=== PATIENT | female | born 1945 | race Caucasian/White ===

== ENCOUNTER 2017-01-09 10:37 | Emergency (ER) | payer MEDICARE ==
[~2017-01-09 10:37] MED LIST: ASPI81TA2 PO; CARI350T PO; CARI350T14 PO; CEPH-264 PO; HYDR-2672 PO; HYDR-971 PO; LISI40TA PO; SIMV20TA3 PO; TRAZ300T2 PO; ZOLP10TA PO
--- NOTE | 2017-01-09 11:04 | ED.ADGEN ---
Past History Past Medical History: COPD, High Cholesterol, Hypertension Past Surgical History: Appendectomy, Cholecystectomy, Hysterectomy, Other Smoking: Cigarettes Alcohol Use: None Drug Use: None Adult General HPI HPI Patient is a 71-year-old female presents emergency department complaining of lower abdominal pain and cramping. This is been going on for last 3 days. His been treated since she had a bowel movement. The patient does take daily narcotic medications. She denies any fever, chills, nausea, vomiting. Denies any dysuria or vaginal bleeding or discharge. Review of Systems Review of Systems Constitutional: Denies fever or chills [] Eyes: Denies change in visual acuity, redness, or eye pain [] HENT: Denies nasal congestion or sore throat [] Respiratory: Denies cough or shortness of breath [] Cardiovascular: No additional information not addressed in HPI [] GI: Denies abdominal pain, nausea, vomiting, bloody stools or diarrhea [] : Denies dysuria or hematuria [] Musculoskeletal: Denies back pain or joint pain [] Integument: Denies rash or skin lesions [] Neurologic: Denies headache, focal weakness or sensory changes [] Endocrine: Denies polyuria or polydipsia [] Current Medications Current Medications Current Medications Medications (Trade) Dose Ordered Sig/Sue Start Time Stop Time Status Last Admin Dose Admin Methylnaltrexone [place] (Relistor) 12 mg 1X ONCE 01/09/17 12:30 01/09/17 12:31 Allergies Allergies Allergies Coded Allergies Type Severity Reaction Last Updated Verified paroxetine HCl Allergy Unknown Diarrhea 02/16/16 Yes Physical Exam Physical Exam Constitutional: Well developed, well nourished, no acute distress, non-toxic appearance. [] HENT: Normocephalic, atraumatic, bilateral external ears normal, oropharynx moist, no oral exudates, nose normal. [] Eyes: PERRLA, EOMI, conjunctiva normal, no discharge. [] Neck: Normal range of motion, no tenderness, supple, no stridor. [] Cardiovascular:Heart rate regular rhythm, no murmur [] Lungs & Thorax: Bilateral breath sounds clear to auscultation [] Abdomen: Bowel sounds normal, soft, mild diffuse tenderness to palpation without peritoneal signs, no masses, no pulsatile masses. [] Skin: Warm, dry, no erythema, no rash. [] Back: No tenderness, no CVA tenderness. [] Extremities: No tenderness, no cyanosis, no clubbing, ROM intact, no edema. [] Neurologic: Alert and oriented X 3, normal motor function, normal sensory function, no focal deficits noted. [] Psychologic: Affect normal, judgement normal, mood normal. [] Current Patient Data Vital Signs Vital Signs Date Time Temp Pulse Resp B/P Pulse Ox O2 Delivery O2 Flow Rate FiO2 01/09/17 12:05 88 18 163/80 98 Nasal Cannula 2 01/09/17 10:40 98.2 Lab Results Laboratory Tests Test 01/09/17 11:03 01/09/17 11:07 01/09/17 11:44 Aspartate Amino Transferase (AST) 12U/L (15-37) L Alanine Aminotransferase (ALT) 12U/L (14-59) L Alkaline Phosphatase 66U/L (46-116) Lipase 36U/L (73-393) L POC Hemoglobin 16.3gm/dL POC Hematocrit 48% POC Sodium 139mmol/L (135-145) POC Potassium 4.1mmol/L (3.5-5.0) POC Chloride 98mmol/L (98-110) POC Total CO2 30mmol/L (23-32) Anion Gap 16mmol/L (6-14) H POC Blood Urea Nitrogen 14mg/dL (8-26) POC Creatinine 0.6mg/dL (0.5-1.4) Glucose Level 80mg/dL (60-99) POC Ionized Calcium (Brittani) 1.15mmol/L (1.13-1.32) Urine Collection Type Unknown Urine Color Sarah Urine Clarity Hazy Urine pH 6.0 Urine Specific [place] 1.020 Urine Protein 100 mg/dl (NEG-TRACE) Urine Glucose (UA) Negmg/dL (NEG) Urine Ketones (Stick) 40mg/dL (NEG) Urine Blood Trace (NEG) Urine Nitrite Neg (NEG) Urine Bilirubin Mod (NEG) Urine Urobilinogen Dipstick 1mg/dL (0.2 mg/dL) Urine Leukocyte Esterase Neg (NEG) Urine RBC 0/HPF (0-2) Urine WBC 1-4/HPF (0-4) Urine Squamous Epithelial Cells Many/LPF Urine Amorphous Sediment Present/HPF Urine Bacteria 0/HPF (0-FEW) Urine Mucus Marked/LPF EKG EKG [] Radiology/Procedures Radiology/Procedures KUB History: Diffuse abdominal pain for 3 days. Findings: No obstructive bowel pattern is seen. No significant dilatation of large or small bowel loops is seen. Vascular calcifications are seen. Small radiopaque punctate stone of the upper pole of the left kidney is seen. Cholecystectomy clips are seen within the right upper quadrant. The osseous structures are intact. IMPRESSION: No acute radiographic abnormality. DICTATED AND SIGNED BY: ARMOND KIMBALL MD DATE: 01/09/17 1138 CC: ROSA MARIA AMBROSE MD; YANIRA GUTIERREZ MD ~ [] Course & Med Decision Making Course & Med Decision Making Pertinent Labs and Imaging studies reviewed. (See chart for details) Workup consistent with constipation which goes along with her history of chronic opiate use. She was given a dose of Relistor store here in emergency department. She was discharged home with supportive care and follow-up instructions. [] Final Impression Final Impression constipation[] Problems: Dragon Disclaimer Dragon Disclaimer This electronic medical record was generated, in whole or in part, using a voice recognition dictation system. ROSA MARIA AMBROSE MD Jan 09, 2017 11:04
[2017-01-09 11:10] LABS: HEMOGLOBIN ISTAT 16.3 gm/dL; POTASSIUM ISTAT 4.1 mmol/L (3.5-5.0)
[2017-01-09 11:25] LABS: ALK PHOS 66 U/L (46-116); ALT (SGPT) 12 U/L (14-59); AST (SGOT) 12 U/L (15-37); LIPASE 36 U/L (73-393)
--- NOTE | 2017-01-09 11:38 | RAD ---
KUB History: Diffuse abdominal pain for 3 days. Findings: No obstructive bowel pattern is seen. No significant dilatation of large or small bowel loops is seen. Vascular calcifications are seen. Small radiopaque punctate stone of the upper pole of the left kidney is seen. Cholecystectomy clips are seen within the right upper quadrant. The osseous structures are intact. IMPRESSION: No acute radiographic abnormality.
[2017-01-09 12:02] LABS: BILIRUBIN,URINE MOD (NEG); CLARITY,URINE HAZY; COLOR,URINE AMBER; GLUCOSE,URINE NEG (NEG)
[2017-01-09 12:03] LABS: AMORPHOUS SEDIMENT,UR PRESENT /HPF; BACTERIA,URINE 0 /HPF (0-FEW); NITRITE,URINE NEG (NEG); RBC,URINE 0 /HPF (0-2); SQUAMOUS EPITHELIAL CELL,UR MANY /LPF; UROBILINOGEN,URINE 1 mg/dL (0.2 mg/dL)
[2017-01-09 12:05] VITALS: BP 163/80
[2017-01-09] MEDS ORDERED: METHYLNALTREXONE 12 MG/0.6 ML VIAL. SQ ONE (12:30)
== END 2017-01-09 12:45 | disposition home or self-care (01) ==
LOC: ER 10:37
DX: K59.00 Constipation, unspecified (principal); E78.00 Pure hypercholesterolemia, unspecified; I10 Essential (primary) hypertension; J44.9 Chronic obstructive pulmonary disease, unspecified; Z79.891 Long term (current) use of opiate analgesic; Z88.8 Allergy status to other drugs, medicaments and biological substances; F17.210 Nicotine dependence, cigarettes, uncomplicated; Z90.49 Acquired absence of other specified parts of digestive tract; Z90.710 Acquired absence of both cervix and uterus
CPT/HCPCS: 36415; 74000; 80047; 81001; 83690; 84075; 84450; 84460; 96372; 99285; J2212

== ENCOUNTER 2017-12-09 19:57 | Emergency (ER) | payer OTHER ==
[~2017-12-09 19:57] MED LIST changes: +ASPI-630 PO; -ASPI81TA2 PO; -HYDR-2672 PO; +HYDR-2766 PO
[2017-12-09 20:56] VITALS: BP 120/59
[2017-12-09] MEDS ORDERED: IV NORMAL SALINE 500ML 500 ML IV ONE (21:00)
--- NOTE | 2017-12-09 21:01 | PHYS DOC ---
Past History Past Medical History: COPD, Depression, High Cholesterol, Hypertension Past Surgical History: Appendectomy, Cholecystectomy, Hysterectomy, Other Smoking: Cigarettes Alcohol Use: None Drug Use: None Adult General Chief Complaint Chief Complaint: HEADACHE HPI HPI Patient is a 71 year old, one pack a day smoker presents with complaints of migraine that started today, similar to previous migraines. Patient has no other complaints except for chronic cough Review of Systems Review of Systems Constitutional: Denies fever or chills [] Eyes: Denies change in visual acuity, redness, or eye pain [] HENT: Denies nasal congestion or sore throat [] Respiratory: Yes to cough Cardiovascular: No chest pain GI: Denies abdominal pain, nausea, vomiting : Denies dysuria or hematuria [] Musculoskeletal: Denies back pain or joint pain [] Integument: Denies rash or skin lesions [] Neurologic: Denies headache, focal weakness or sensory changes [] All other systems were reviewed and found to be within normal limits, except as documented in this note. Allergies Allergies Allergies Coded Allergies Type Severity Reaction Last Updated Verified paroxetine HCl Allergy Unknown Diarrhea 02/16/16 Yes Physical Exam Physical Exam Constitutional: Well developed, well nourished, no acute distress, non-toxic appearance. [] HENT: Normocephalic, atraumatic, bilateral external ears normal, oropharynx dry , no oral exudates, nose normal. [] Eyes: PERRLA, EOMI, conjunctiva normal, no discharge. [] Neck: Normal range of motion, no tenderness, supple, no stridor. No LAD, no meningeal signs Cardiovascular:Heart rate regular rhythm, no murmur, equal pulses, normal perfusion Lungs & Thorax: Bilateral breath sounds clear to auscultation, no tachypnea, no wheezing, no rhonchi, no rales Abdomen: Bowel sounds normal, soft, no tenderness, Skin: Warm, dry, no erythema, no rash. [] Back: No tenderness, no CVA tenderness. [] Extremities: No tenderness, no DVT, ROM intact, no edema. [] Neurologic: Alert and oriented X 3, normal motor function, no focal deficits noted. Ambulates in the ED with normal gait and without assistance, cranial nerves III-12 within normal limits, no pronator drift Psychologic: Affect normal, judgement normal, mood normal. [] EKG EKG [] Radiology/Procedures Radiology/Procedures [] Course & Med Decision Making Course & Med Decision Making Pertinent Labs and Imaging studies reviewed. (See chart for details) 2129 patient states she feels greatly improved after medications and she is requesting discharge home [] Dragon Disclaimer Dragon Disclaimer This electronic medical record was generated, in whole or in part, using a voice recognition dictation system. Departure Departure: Impression: Primary Impression: Migraine Additional Impressions: Dehydration Tobacco abuse Tobacco abuse counseling Disposition: HOME, SELF-CARE Condition: IMPROVED Referrals: YANIRA GUTIERREZ MD (PCP) Please follow with your doctor in 1 day, please discuss with your doctor possible need for referral to neurologist Patient Instructions: Dehydration, Adult, Migraine Headache, Smoking Cessation Problem Qualifiers Apurva MORALES MD Dec 09, 2017 21:00
[2017-12-09] MEDS ORDERED: diphenhydrAMINE 50 MG/ML VIAL IVP ONE (21:15)
[2017-12-09] MEDS ORDERED: KETOROLAC 15 MG/ML VIAL. IV ONE (21:15)
[2017-12-09] MEDS ORDERED: PROCHLORPERAZINE 10 MG/2 ML VIAL. IV ONE (21:15)
== END 2017-12-09 21:43 | disposition home or self-care (01) ==
LOC: ER 19:57
DX: G43.909 Migraine, unspecified, not intractable, without status migrainosus (principal); E86.0 Dehydration; E78.00 Pure hypercholesterolemia, unspecified; F32.9 Major depressive disorder, single episode, unspecified; I10 Essential (primary) hypertension; J44.9 Chronic obstructive pulmonary disease, unspecified; F17.210 Nicotine dependence, cigarettes, uncomplicated; Z71.6 Tobacco abuse counseling; Z88.8 Allergy status to other drugs, medicaments and biological substances
CPT/HCPCS: 96361; 96374; 96375; 99284; J0780; J1200; J1885; J7040

== ENCOUNTER 2018-03-01 17:57 | Emergency (ER) | payer OTHER ==
[~2018-03-01] VITALS: Ht 167.6 cm; Wt 67.1 kg
[2018-03-01] MEDS ORDERED: diphenhydrAMINE 50 MG/ML VIAL IVP ONE ×2 (18:15→19:00)
[2018-03-01] MEDS ORDERED: IV NORMAL SALINE 1,000ML 1,000 ML IV ONE (18:15)
[2018-03-01] MEDS ORDERED: KETOROLAC 15 MG/ML VIAL. IV ONE (18:30)
[2018-03-01] MEDS ORDERED: PROCHLORPERAZINE 10 MG/2 ML VIAL. IV ONE (18:30)
[2018-03-01 18:57] VITALS: BP 145/65
--- NOTE | 2018-03-01 19:40 | ED.ADGEN ---
Past History Past Medical History: COPD, Depression, High Cholesterol, Hypertension Past Surgical History: Appendectomy, Cholecystectomy, Hysterectomy, Other Smoking: Cigarettes Alcohol Use: None Drug Use: None Adult General HPI HPI Patient is a 72 year old female who presents with common migraine. Patient states she has an extensive prior history of migraine headaches. This one has been present for the last 2 days. She states it feels identical to her normal migraines. She has not had a fever or chills. The headache did not come on quickly. She has no neck stiffness. She has no rashes. She denies vision changes although she does have photophobia and phonophobia. She has some nausea but no emesis. This headache feels exactly like her normal migraine syndrome. No focal neurologic deficits Review of Systems Review of Systems Constitutional: Denies fever or chills Eyes: Denies change in visual acuity, redness, or eye pain HENT: denies complaints Respiratory: Denies cough or shortness of breath Cardiovascular: No additional information not addressed in HPI GI: Denies abdominal pain, nausea, vomiting : Denies dysuria or hematuria Musculoskeletal: Denies back pain Integument: Denies rash or skin lesions Neurologic: Denies, focal weakness or sensory changes Endocrine: Denies polyuria or polydipsia All other systems were reviewed and found to be within normal limits, except as documented in this note. Current Medications Current Medications Current Medications Medications (Trade) Dose Ordered Sig/Sue Start Time Stop Time Status Last Admin Dose Admin Diphenhydramine HCl (Benadryl) 25 mg 1X ONCE 03/01/18 19:00 03/01/18 19:01 DC 03/01/18 18:50 25 MG Ketorolac Tromethamine (Toradol) 15 mg 1X ONCE 03/01/18 18:30 03/01/18 18:31 DC 03/01/18 18:30 15 MG Prochlorperazine Edisylate (Compazine) 10 mg 1X ONCE 03/01/18 18:30 03/01/18 18:31 DC 03/01/18 18:30 10 MG Sodium Chloride 1,000 ml @ 1,000 mls/hr 1X ONCE 03/01/18 18:15 03/01/18 19:14 DC 03/01/18 18:15 1,000 MLS/HR Allergies Allergies Allergies Coded Allergies Type Severity Reaction Last Updated Verified paroxetine HCl Allergy Unknown Diarrhea 5/16/16 Yes Physical Exam Physical Exam Constitutional: Well developed, well nourished, no acute distress, non-toxic appearance. HENT: Normocephalic, atraumatic, bilateral external ears normal, oropharynx moist Eyes: PERRLA, EOMI, conjunctiva normal, no discharge. Neck: Normal range of motion, no tenderness, supple, no stridor. Cardiovascular:Heart rate regular rhythm, no murmur Lungs & Thorax: Bilateral breath sounds clear to auscultation Skin: Warm, dry, no erythema, no rash. Back: No tenderness, no CVA tenderness. Extremities: Normal ROM Neurologic: Alert and oriented X 3, normal motor function, normal sensory function, no focal deficits noted Psychologic: Affect normal, judgement normal, mood normal. Current Patient Data Vital Signs Vital Signs Date Time Temp Pulse Resp B/P (MAP) Pulse Ox O2 Delivery O2 Flow Rate FiO2 03/01/18 18:57 86 18 145/65 (91) 97 Room Air 03/01/18 18:05 98.4 EKG EKG [] Radiology/Procedures Radiology/Procedures [] Course & Med Decision Making Course & Med Decision Making Pertinent Labs and Imaging studies reviewed. (See chart for details) Patient is evaluated in the emergency department. She has what is described to be a very typical migraine for her. No additional red flag symptoms or findings on physical exam are. She was given a dose of Compazine, Toradol, Benadryl, and 1 L of IV fluids. Her headache was improved but she did develop some akathisia' s which were very mild. She was given an additional dose of Benadryl and the symptoms improved almost immediately. At that point, the patient was 100% symptom free. She was requesting discharge to home. She was awake and alert and oriented with a normal steady gait and with no apparent side effects of the medications which were given Final Impression Final Impression Migraine Dragon Disclaimer Dragon Disclaimer This electronic medical record was generated, in whole or in part, using a voice recognition dictation system. SHRADDHA BARNARD DO March 01, 2018 19:40
== END 2018-03-01 19:02 | disposition home or self-care (01) ==
LOC: ER 17:57
DX: G43.909 Migraine, unspecified, not intractable, without status migrainosus (principal); J44.9 Chronic obstructive pulmonary disease, unspecified; E78.00 Pure hypercholesterolemia, unspecified; I10 Essential (primary) hypertension; F17.210 Nicotine dependence, cigarettes, uncomplicated; Z88.8 Allergy status to other drugs, medicaments and biological substances
CPT/HCPCS: 96374; 96375; 99284; J0780; J1200; J1885; 96361; J7030

== ENCOUNTER 2018-10-27 15:12 | Observation (INO) | payer OTHER ==
[~2018-10-27] VITALS: Ht 167.6 cm; Wt 2.4 kg
[~2018-10-27 15:12] MED LIST changes: -HYDR-2766 PO; +HYDR-2769 PO; +HYDR-3165 PO; -HYDR-971 PO
[2018-10-27 15:55] LABS: BASO % 1 % (0-3); EOS % 1 % (0-3); HEMATOCRIT 46.8 % (36.0-47.0); HEMOGLOBIN 15.2 g/dL (12.0-15.5); LYMPH # 1.5 x10^3/uL (1.0-4.8); LYMPH % 33 % (24-48); MEAN CORPUSCULAR HEMOGLOBIN 31 pg (25-35); MEAN CORPUSCULAR HGB CONC 32 g/dL (31-37); MEAN CORPUSCULAR VOLUME 96 fL (79-100); MONO # 0.4 x10^3/uL (0.0-1.1); MONO % 8 % (0-9); NEUT # 2.7 x10^3uL (1.8-7.7); NEUT % 57 % (31-73); PLATELET COUNT 202 x10^3/uL (140-400); RED BLOOD COUNT 4.89 x10^6/uL (3.50-5.40); RED CELL DISTRIBUTION WIDTH 16.5 % (11.5-14.5); WHITE BLOOD COUNT 4.7 x10^3/uL (4.0-11.0)
[2018-10-27] MEDS ORDERED: HYDROcodone/APAP 5/325MG 1 TAB TABLET ONE (15:56)
[2018-10-27] MEDS ORDERED: LIDOCAINE 1% Multi-Dose 20 ML VIAL. ONE (15:56)
[2018-10-27] MEDS ORDERED: LIDOCAINE 1% Multi-Dose 20 ML VIAL. IJ ONE (16:00)
[2018-10-27] MEDS ORDERED: HYDROcodone/APAP 5/325MG 1 TAB TABLET PO ONE (16:00)
[2018-10-27 16:07] LABS: ALBUMIN 3.4 g/dL (3.4-5.0); ALBUMIN/GLOBULIN RATIO 1.1 (1.0-1.7); CALCIUM 9.3 mg/dL (8.5-10.1); CREATININE 0.8 mg/dL (0.6-1.0); GFR 70.9; POTASSIUM 3.9 mmol/L (3.5-5.1); TOTAL BILIRUBIN 0.4 mg/dL (0.2-1.0); TOTAL PROTEIN 6.6 g/dL (6.4-8.2)
--- NOTE | 2018-10-27 16:13 | PHYS DOC ---
Past History Past Medical History: COPD, Depression, High Cholesterol, Hypertension Past Surgical History: Appendectomy, Cholecystectomy, Hysterectomy, Other Smoking: Cigarettes Alcohol Use: None Drug Use: None Adult General Chief Complaint Chief Complaint: MECHANICAL FALL HPI HPI Patient is a 72-year-old female who presents with complaint of head and neck pain after falling at home. Patient reportedly had fallen and hit the back of her head on the door stop. Patient is not sure whether or not she lost consciousness and does not actually remember the fall. She does complain of head and neck pain that she rates at an 8 out of 10. She states the pain in her neck is worsened with movement of her neck. She denies any nausea or vomiting. Patient is not sure why she fell. Review of Systems Review of Systems Constitutional: Denies fever or chills [] Eyes: Denies change in visual acuity, redness, or eye pain [] Respiratory: Denies cough or shortness of breath [] Cardiovascular: No additional information not addressed in HPI [] GI: Denies nausea or vomiting [] Musculoskeletal: Complains of neck pain [] Integument: Positive laceration to scalp [] Neurologic: Complains of headache without focal weakness or sensory changes [] All other systems were reviewed and found to be within normal limits, except as documented in this note. Current Medications Current Medications Current Medications Medications (Trade) Dose Ordered Sig/Sue Start Time Stop Time Status Last Admin Dose Admin Acetaminophen/ Hydrocodone Bitart (Lortab 5/325) 1 tab STK-MED ONCE 10/27/18 15:56 10/27/18 15:58 DC Lidocaine HCl 20 ml STK-MED ONCE 10/27/18 15:56 10/27/18 15:58 DC Allergies Allergies Allergies Coded Allergies Type Severity Reaction Last Updated Verified paroxetine HCl Allergy Unknown Diarrhea 02/16/16 Yes Physical Exam Physical Exam Constitutional: Well developed, well nourished, no acute distress, non-toxic appearance. [] HENT: Normocephalic, with 2 cm laceration to the parieto-occipital region of scalp that is curved in shape and extends into subcutaneous tissue. No galeal involvement is noted on exam. Margins are sharp. Bilateral external ears normal , oropharynx moist, no oral exudates, nose normal. [] Eyes: PERRLA, EOMI, conjunctiva normal, no discharge. [] Neck: Cervical collar in place. [] Cardiovascular: Regular rate and rhythm [] Lungs & Thorax: Fairly good air movement is noted throughout with fine inspiratory next for 20 wheezes to auscultation [] Abdomen: Bowel sounds normal, soft, no tenderness. [] Skin: Scalp laceration as noted above. [] Extremities: No tenderness, no cyanosis, no clubbing, ROM intact. [] Neurologic: Awake and alert with no focal deficits noted. [] Current Patient Data Vital Signs Vital Signs Date Time Temp Pulse Resp B/P (MAP) Pulse Ox O2 Delivery O2 Flow Rate FiO2 10/27/18 15:59 16 Room Air 10/27/18 15:25 97.2 78 94 Lab Results Laboratory Tests Test 10/27/18 15:35 White Blood Count 4.7 x10^3/uL (4.0-11.0) Red Blood Count 4.89 x10^6/uL (3.50-5.40) Hemoglobin 15.2 g/dL (12.0-15.5) Hematocrit 46.8 % (36.0-47.0) Mean Corpuscular Volume 96 fL (79-100) Mean Corpuscular Hemoglobin 31 pg (25-35) Mean Corpuscular Hemoglobin Concent 32 g/dL (31-37) Red Cell Distribution Width 16.5 % (11.5-14.5) H Platelet Count 202 x10^3/uL (140-400) Neutrophils (%) (Auto) 57 % (31-73) Lymphocytes (%) (Auto) 33 % (24-48) Monocytes (%) (Auto) 8 % (0-9) Eosinophils (%) (Auto) 1 % (0-3) Basophils (%) (Auto) 1 % (0-3) Neutrophils # (Auto) 2.7 x10^3uL (1.8-7.7) Lymphocytes # (Auto) 1.5 x10^3/uL (1.0-4.8) Monocytes # (Auto) 0.4 x10^3/uL (0.0-1.1) Eosinophils # (Auto) 0.0 x10^3/uL (0.0-0.7) Basophils # (Auto) 0.0 x10^3/uL (0.0-0.2) EKG EKG [] Radiology/Procedures Radiology/Procedures [] Impressions: PROCEDURE: [facility] Compliance Statement: One or more of the following individualized dose reduction techniques were utilized for this examination: 1. Automated exposure control 2. Adjustment of the mA and/or kV according to patient size 3. Use of iterative reconstruction technique CT HEAD AND CERVICAL SPINE WITHOUT CONTRAST History: FALL. CONFUSION. Comparison: CT head without contrast May 09, 2015. Procedure: Axial images are obtained of the head from the skull base through the vertex without IV contrast. Noncontrast helical CT of the cervical spine was performed. Axial, sagittal, and coronal reconstructions were obtained. Findings: The ventricles and sulci are normal for the patient's age. No mass-effect, midline shift, hemorrhage or obvious acute infarction is identified. Basilar cisterns are patent. Bone windows demonstrate no significant calvarial abnormality. The visualized paranasal sinuses are clear. Mastoid air cells are well aerated. Motion artifact degrades image quality in the upper cervical spine. A nondisplaced fracture could be obscured. Given this limitation, there is no evidence of acute fracture or acute malalignment of the cervical spine. The craniovertebral junction is normal. Facet joints are hypertrophic, worse on the right than the left. There is degenerative endplate spurring in the thoracic spine. The alignment is maintained. Mild retroodontoid soft tissue thickening. Multilevel neural foraminal narrowing due to uncovertebral and facet joint hypertrophy. No high-grade central canal stenosis is appreciated. Visualized soft tissues of the neck demonstrate no significant abnormalities. The visualized lung apices are clear. IMPRESSION: 1. No acute intracranial abnormality. 2. Limited diagnostic evaluation of the upper cervical spine due to motion. 3. No acute fracture of the lower cervical spine. Electronically signed by: Beryn Lewis MD (10/27/2018 4:08 PM) [id number] DICTATED AND SIGNED BY: BERNY LEWIS MD DATE: 10/27/18 1559 Course & Med Decision Making Course & Med Decision Making Pertinent Labs and Imaging studies reviewed. (See chart for details) Laceration Repair by me: Anesthesia: 1% lidocaine locally Location: Parieto-occipital region of scalp Tendon/Joint/Nerves: No injury Foreign body: None detected after copious irrigation and exploration Technique: 3 Marcial placed Complexity: No subcutaneous sutures/mucosal repair/edge excision Post Closure Length: 2 cm Patient's bleeding was easily controlled in the department and there is no indication of anemia. No evidence of compartment syndrome, neurologic injury, vascular injury, open joint, tendon laceration, or foreign body. Patient is appropriate for outpatient follow up. 48 hour wound check. Scar minimization instructions given. Dragon Disclaimer Dragon Disclaimer This electronic medical record was generated, in whole or in part, using a voice recognition dictation system. Departure Departure: Impression: Primary Impression: Closed head injury with concussion Disposition: ADMITTED INPATIENT Admitting Physician: Prabhjot Landers Condition: GOOD Referrals: YANIRA GUTIERREZ MD (PCP) Problem Qualifiers Primary Impression: Closed head injury with concussion Encounter type: initial encounter Loss of consciousness presence/duration: with LOC of unspecified duration Qualified Codes: S06.0X9A - Concussion with loss of consciousness of unspecified duration, initial encounter RADHA HOLLAND Jr., DO Oct 27, 2018 16:13
[2018-10-27] MEDS ORDERED: ONDANSETRON PF 4 MG/2 ML VIAL. IV PRN (17:00)
[2018-10-27 17:46] VITALS: BP 137/62
[2018-10-27] MEDS ORDERED: LISI-334 PO (18:13)
[2018-10-27] MEDS ORDERED: TEMA15CA PO (18:13)
[2018-10-27] MEDS ORDERED: SIMV40TA3 PO (18:13)
[2018-10-27] MEDS ORDERED: RANI300T PO (18:13)
[2018-10-27] MEDS ORDERED: ALPR0.5T6 PO (18:13)
[2018-10-27] MEDS ORDERED: TRAZ300T2 PO (19:22)
[2018-10-27] MEDS: MORPHINE SULFATE 2 MG/ML DISP.SYRIN. IV PRN (19:53)
[2018-10-27] MEDS: IV NORMAL SALINE 1,000ML 1,000 ML IV SCH (19:55)
[2018-10-27] MEDS: HYDROcodone/APAP 10/325 1 TAB TABLET PO SCH ×2 (20:27→20:57)
[2018-10-27] MEDS ORDERED: NON FORMULARY ITEM (Trazodone Hcl 1 TAB) PO SCH (21:00)
[2018-10-27] MEDS ORDERED: traZODone 150 MG TABLET. PO SCH (21:00)
[2018-10-27] MEDS ORDERED: TEMAZEPAM 15 MG CAPSULE PO SCH (21:00)
[2018-10-27] MEDS ORDERED: SIMVASTATIN 40 MG TABLET. PO SCH (21:00)
[2018-10-27] MEDS ORDERED: ASPIRIN 81 MG TAB.CHEW PO SCH (21:00)
[2018-10-27] MEDS ORDERED: ALPRAZolam 0.5 MG TABLET PO SCH (21:00)
[2018-10-27 21:04] VITALS: BP 166/77
[2018-10-27 23:18] VITALS: BP 120/58
[2018-10-28] MEDS: IV NORMAL SALINE 1,000ML 1,000 ML IV SCH (03:54)
[2018-10-28] MEDS: MORPHINE SULFATE 2 MG/ML DISP.SYRIN. IV PRN (03:54)
[2018-10-28 04:59] VITALS: BP 152/81
[2018-10-28 05:07] VITALS: BP 152/81
[2018-10-28] MEDS: HYDROcodone/APAP 10/325 1 TAB TABLET PO SCH ×2 (07:42→12:51)
[2018-10-28] MEDS ORDERED: ALPRAZolam 0.5 MG TABLET PO ONE (09:00)
[2018-10-28] MEDS ORDERED: FAMOTIDINE 20 MG TABLET PO SCH (09:00)
[2018-10-28] MEDS ORDERED: LISINOPRIL 20 MG TABLET PO SCH (09:00)
[2018-10-28] MEDS ORDERED: IOHEXOL 300 MG/ML 75 ML VIAL. IV ONE (10:30)
[2018-10-28 11:10] VITALS: BP 131/72
--- NOTE | 2018-10-28 11:19 | RAD ---
CT study of the pelvis without contrast Clinical indications: Patient fell. Pelvic pain. TECHNIQUE: Noncontrast helical CT scanning of the pelvis was performed. Multiplanar 2-D reconstructions were generated. PQRS compliance Statement One or more of the following individualized dose reduction techniques were utilized for this study: 1. Automated exposure control 2. Adjustment of the mA and/or kV according to patient size 3. Use of iterative reconstruction technique FINDINGS: No fracture or lytic process is seen. Mild primary degenerative osteoarthritis of both hip joints is seen. No diastases of the symphysis pubis or either SI joint is seen. Sigmoid diverticulosis is seen without diverticulitis. Urinary bladder is not abnormally distended. No enlarged pelvic lymphadenopathy is evident. IMPRESSION: No acute fracture. Electronically signed by: Hakan Mccollum MD (10/28/2018 11:15 AM) [facility]
--- NOTE | 2018-10-28 11:24 | RAD ---
CHEST PA LATERAL Clinical indications: short of breath with cough COMPARISON: Chest x-ray dated January 22, 2015. Findings: No acute lung infiltrate or pleural effusion or pulmonary edema or lung mass or pneumothorax is seen. The heart size, pulmonary vasculature, mediastinum and both olinda are unremarkable. There is a mild compression deformity of superior endplate of L1 of indeterminate age. This was not seen on a previous CT study lumbar spine dated February 12, 2015. Impression: No acute lung infiltrate. Mild compression deformity of the superior endplate of L1 of indeterminate age. Electronically signed by: Hakan Mccollum MD (10/28/2018 11:20 AM) [facility]
[2018-10-28] MEDS ORDERED: IPRATRPIUM/ALBUTEROL 0.5/2.5MG 3 ML NEBU. NEB SCH (12:00)
--- NOTE | 2018-10-28 13:02 | RAD ---
CTA OF THE CHEST WITH AND WITHOUT CONTRAST Clinical indications: Shortness of breath with cough. History of COPD. Positive d-dimer. Weight loss. Technique: Noncontrast axial localizer was performed. After IV infusion of 75 cc of Omnipaque 300, helical CT scanning of the chest was performed using the CT pulmonary embolism protocol. A coronal MIP reconstruction was generated. PQRS compliance Statement One or more of the following individualized dose reduction techniques were utilized for this study: 1. Automated exposure control 2. Adjustment of the mA and/or kV according to patient size 3. Use of iterative reconstruction technique Comparison: January 23, 2015. Findings: No pulmonary embolism is evident. Calcified atheromatous disease of the thoracic aorta is seen. No focal aneurysmal dilatation is evident. There is ectasia of the ascending aorta measuring up to 3.9 cm in greatest dimension. Calcified atheromatous disease of coronary arteries is seen. The heart size is normal. No pericardial effusion is seen. No enlarged thoracic lymphadenopathy is evident. There is chronic interstitial lung disease within the posterior aspect of the left upper lobe. This is a small focus. This is unchanged. There is chronic scarring within the medial aspect of the left lower lobe. Mild groundglass lung infiltrate is seen within the medial aspect of the right middle lobe which most likely represents atelectasis. No lung consolidation is evident otherwise. No lung mass is seen. No pleural effusion or pneumothorax is evident. The proximal bronchial tree is patent. No adrenal mass is evident. No lytic process is seen. IMPRESSION: No pulmonary embolism. No lung consolidation or lung mass or pleural effusion is seen. Calcified atheromatous disease of the coronary arteries. Electronically signed by: Hakan Mccollum MD (10/28/2018 12:57 PM) [facility]
--- NOTE | 2018-10-28 16:28 | HP ---
ADMIT DATE: 10/28/2018 HISTORY OF PRESENT ILLNESS: The patient is a 72-year-old female who came in through the Emergency Room. The patient apparently had fallen at home. She does not know how she fell or why she fell. Did hit the back of her head, required a couple of stitches back there in the Emergency Room. The patient is complaining of severe headache, pain in her neck, rated 10. X-rays were taken in the Emergency Room, several workup. CT scans of the head and neck demonstrated no problems in either position. PAST MEDICAL HISTORY: Left eardrum perforation with repair, cataracts bilaterally, hypercholesterolemia, hypertension, diverticulosis, cholecystectomy, appendectomy, hysterectomy, history of GERD, chronic lower back pain, psychiatric problems, depression, anxiety, previous suicide attempts. SUBSTANCE ABUSE: She uses prescription drugs and marijuana, smoking cessation, cancer, influenza and pneumococcal vaccinations 2018, up-to-date adverse reaction to Paxil. MEDICATIONS: Simvastatin 40, lisinopril 20, aspirin 81, hydrocodone 10/325 one 4 times a day, Xanax 0.5 at bedtime, temazepam 15 mg at bedtime, ranitidine 300 mg daily. FAMILY HISTORY: Noncontributory. SOCIAL HISTORY: The patient apparently has a smoking history. Occasional alcohol use. Does use other drugs. REVIEW OF SYSTEMS: The patient complains of headache and neck pain as well as a left hip pelvic area pain as well as pain in her coccygeal sacral area. The patient on exam she denies chest pain, shortness of breath. Denies palpitations, fluttering; does not know why she passed out. PHYSICAL EXAMINATION: GENERAL: The patient otherwise on exam is a white female. She has a laceration to the back of her head that has been stapled mild bleeding there. HEENT: Head is atraumatic, normocephalic except as otherwise noted. The eyes were PERRLA, EOMI. Sclerae are clear. Mouth and throat were normal. NECK: Fairly supple, although there is some muscle spasm . LUNGS: Diminished throughout, poor movement of air. CARDIOVASCULAR: Regular sinus rhythm. ABDOMEN: Soft, nontender, no rebound or guarding. Positive bowel sounds. EXTREMITIES: No clubbing, cyanosis or edema. NEUROLOGIC: The patient was alert and oriented x 3. Cranial nerves 2-12 grossly intact. LABORATORY DATA: White female, looks somewhat older than stated age and also looks somewhat cachectic, apparently has been losing weight and that is being worked up by her primary care provider. CBC: H and H 15 and 46. Electrolytes, all within normal limits. Liver enzymes actually on the low side. D-dimer elevated. IMPRESSION AND PLAN: The patient probably get a CTA, although more than likely related to her fall. Extremities, no clubbing, cyanosis or edema except for pain in that left pelvis and coccygeal area. Awaiting CT report there. We will go ahead. IMPRESSION: Fall at home, concussion, hypertension, chronic pain syndrome, chronic anxiety. PLAN: The patient will be monitored carefully, make further evaluation on her as indicated and do neuro checks. We will do the CT of the pelvic area to look for any signs of fracture. Also, CTA because of the positive D-dimer and her weight loss. MEENA LIU MD DR: CORINE/sincere JOB#: [id number] / [id number]
== END 2018-10-28 13:32 | disposition home or self-care (01) ==
LOC: ER 15:12 → 1 SOUTH 16:50 → INTOOBSV 16:50
PROVIDERS: ADMIT Family Medicine; ATTEND Family Medicine
DX: S06.0X0A Concussion without loss of consciousness, initial encounter (principal); S01.01XA Laceration without foreign body of scalp, initial encounter; I10 Essential (primary) hypertension; G89.4 Chronic pain syndrome; F41.9 Anxiety disorder, unspecified; E78.00 Pure hypercholesterolemia, unspecified; Z91.5 Personal history of self-harm; F32.9 Major depressive disorder, single episode, unspecified; K57.90 Diverticulosis of intestine, part unspecified, without perforation or abscess without bleeding; J44.9 Chronic obstructive pulmonary disease, unspecified; K21.9 Gastro-esophageal reflux disease without esophagitis; Z90.49 Acquired absence of other specified parts of digestive tract; Z87.891 Personal history of nicotine dependence; Z90.710 Acquired absence of both cervix and uterus; Y93.89 Activity, other specified; W18.39XA Other fall on same level, initial encounter; Y92.098 Other place in other non-institutional residence as the place of occurrence of the external cause; Y99.8 Other external cause status; M54.5 Low back pain; Z88.8 Allergy status to other drugs, medicaments and biological substances
CPT/HCPCS: 12001; 36415; 70450; 71046; 71275; 72125; 72192; 80053; 82306; 84443; 85025; 85379; 94640; 96374; 96376; 99285; 99406; G0378; J2270; J7620; Q9967; G0379; J7030

== ENCOUNTER 2018-11-03 14:42 | Emergency (ER) | payer OTHER ==
[~2018-11-03] VITALS: Ht 167.6 cm; Wt 52.2 kg
[~2018-11-03 14:42] MED LIST changes: +ALPR0.5T6 PO; +LISI-334 PO; +RANI300T PO; +SIMV40TA3 PO; +TEMA15CA PO
[2018-11-03 14:57] VITALS: BP 129/70
--- NOTE | 2018-11-03 15:08 | PHYS DOC ---
Past History Past Medical History: COPD, Depression, High Cholesterol, Hypertension Past Surgical History: Appendectomy, Cholecystectomy, Hysterectomy, Other Smoking: Cigarettes Alcohol Use: None Drug Use: None Adult General Chief Complaint Chief Complaint: SUTURE/STAPLE REMOVAL HPI HPI 5-year-old female presents for staple removal or scalp. Patient denies having any recent bleeding. She states not having any ill effects. Review of Systems Review of Systems Constitutional: Denies fever or chills [] Eyes: Denies change in visual acuity, redness, or eye pain [] HENT: Denies nasal congestion or sore throat [] Respiratory: Denies cough or shortness of breath [] Cardiovascular: No additional information not addressed in HPI [] GI: Denies abdominal pain, nausea, vomiting, bloody stools or diarrhea [] : Denies dysuria or hematuria [] Musculoskeletal: Denies back pain or joint pain [] Integument: Scalp laceration with dayron[] Neurologic: Denies headache, focal weakness or sensory changes [] Endocrine: Denies polyuria or polydipsia [] All other systems were reviewed and found to be within normal limits, except as documented in this note. Allergies Allergies Allergies Coded Allergies Type Severity Reaction Last Updated Verified paroxetine HCl Allergy Unknown Diarrhea 11/03/18 Yes Physical Exam Physical Exam Constitutional: Well developed, well nourished, no acute distress, non-toxic appearance. [] HENT: Normocephalic, atraumatic, bilateral external ears normal, oropharynx moist, no oral exudates, nose normal. [] Eyes: PERRLA, EOMI, conjunctiva normal, no discharge. [] Neck: Normal range of motion, no tenderness, supple, no stridor. [] Cardiovascular:Heart rate regular rhythm, no murmur [] Lungs & Thorax: Bilateral breath sounds clear to auscultation [] Abdomen: Bowel sounds normal, soft, no tenderness, no masses, no pulsatile masses. [] Skin: 3 dayron in the posterior scalp, no infection, appropriate healing[] Back: No tenderness, no CVA tenderness. [] Extremities: No tenderness, no cyanosis, no clubbing, ROM intact, no edema. [] Neurologic: Alert and oriented X 3, normal motor function, normal sensory function, no focal deficits noted. [] Psychologic: Affect normal, judgement normal, mood normal. [] Current Patient Data Vital Signs Vital Signs Date Time Temp Pulse Resp B/P (MAP) Pulse Ox O2 Delivery O2 Flow Rate FiO2 11/03/18 14:57 97.9 100 18 95 Room Air EKG EKG [] Radiology/Procedures Radiology/Procedures [] Course & Med Decision Making Course & Med Decision Making Pertinent Labs and Imaging studies reviewed. (See chart for details) Patient's skin is appropriately healing. I believe her dayron are ready to be removed. They were removed by the nurse without complication. [] Dragon Disclaimer Dragon Disclaimer This electronic medical record was generated, in whole or in part, using a voice recognition dictation system. Departure Departure: Impression: Primary Impression: Encounter for staple removal Disposition: HOME, SELF-CARE Condition: STABLE Referrals: YANIRA GUTIERREZ MD (PCP) VIKAS FLORES DO Nov 03, 2018 15:08
== END 2018-11-03 15:12 | disposition home or self-care (01) ==
LOC: ER 14:42
DX: S01.01XD Laceration without foreign body of scalp, subsequent encounter (principal); J44.9 Chronic obstructive pulmonary disease, unspecified; F32.9 Major depressive disorder, single episode, unspecified; E78.00 Pure hypercholesterolemia, unspecified; I10 Essential (primary) hypertension; F17.210 Nicotine dependence, cigarettes, uncomplicated; Z88.8 Allergy status to other drugs, medicaments and biological substances; X58.XXXD Exposure to other specified factors, subsequent encounter
CPT/HCPCS: 99284

== ENCOUNTER 2018-12-16 22:32 | Emergency (ER) | payer OTHER ==
[~2018-12-16] VITALS: Ht 167.6 cm; Wt 52.2 kg
[2018-12-16 23:34] LABS: BASO % 0 % (0-3); EOS % 0 % (0-3); HEMATOCRIT 43.7 % (36.0-47.0); HEMOGLOBIN 14.3 g/dL (12.0-15.5); LYMPH # 2.5 x10^3/uL (1.0-4.8); LYMPH % 24 % (24-48); MEAN CORPUSCULAR HEMOGLOBIN 32 pg (25-35); MEAN CORPUSCULAR HGB CONC 33 g/dL (31-37); MEAN CORPUSCULAR VOLUME 98 fL (79-100); MONO # 0.7 x10^3/uL (0.0-1.1); MONO % 7 % (0-9); NEUT # 6.9 x10^3uL (1.8-7.7); NEUT % 69 % (31-73); PLATELET COUNT 303 x10^3/uL (140-400); RED BLOOD COUNT 4.48 x10^6/uL (3.50-5.40); RED CELL DISTRIBUTION WIDTH 16.7 % (11.5-14.5); WHITE BLOOD COUNT 10.1 x10^3/uL (4.0-11.0)
[2018-12-16 23:55] LABS: ALBUMIN 3.7 g/dL (3.4-5.0); ALBUMIN/GLOBULIN RATIO 1.3 (1.0-1.7); CALCIUM 9.1 mg/dL (8.5-10.1); CREATININE 0.8 mg/dL (0.6-1.0); GFR 70.9; POTASSIUM 4.2 mmol/L (3.5-5.1); TOTAL BILIRUBIN 0.4 mg/dL (0.2-1.0); TOTAL PROTEIN 6.5 g/dL (6.4-8.2)
[2018-12-17] MEDS ORDERED: HYDROcodone/APAP 5/325MG 1 TAB TABLET PO ONE (01:00)
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
[2018-12-17 01:30] VITALS: BP 156/90
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
== END 2018-12-17 01:42 | disposition left against medical advice (07) ==
LOC: ER 22:32
DX: T65.891A Toxic effect of other specified substances, accidental (unintentional), initial encounter (principal); J68.9 Unspecified respiratory condition due to chemicals, gases, fumes and vapors; J44.9 Chronic obstructive pulmonary disease, unspecified; E78.00 Pure hypercholesterolemia, unspecified; I10 Essential (primary) hypertension; F32.9 Major depressive disorder, single episode, unspecified; F17.210 Nicotine dependence, cigarettes, uncomplicated; Z88.8 Allergy status to other drugs, medicaments and biological substances; Y92.89 Other specified places as the place of occurrence of the external cause
CPT/HCPCS: 36415; 71046; 80053; 82375; 82803; 85025; 99284

== ENCOUNTER 2019-02-14 21:24 | Observation (INO) | payer OTHER ==
[~2019-02-14] VITALS: Ht 167.6 cm; Wt 51.3 kg
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
[2019-02-14] MEDS ORDERED: IV RINGERS SOLUTION,LACTATED 1,000 ML IV SCH (21:52)
[2019-02-14 22:06] LABS: BASO % 0 % (0-3); EOS % 0 % (0-3); HEMATOCRIT 39.6 % (36.0-47.0); HEMOGLOBIN 13.1 g/dL (12.0-15.5); LYMPH # 2.5 x10^3/uL (1.0-4.8); LYMPH % 23 % (24-48); MEAN CORPUSCULAR HEMOGLOBIN 32 pg (25-35); MEAN CORPUSCULAR HGB CONC 33 g/dL (31-37); MEAN CORPUSCULAR VOLUME 98 fL (79-100); MONO # 0.8 x10^3/uL (0.0-1.1); MONO % 8 % (0-9); NEUT # 7.2 x10^3uL (1.8-7.7); NEUT % 68 % (31-73); PLATELET COUNT 292 x10^3/uL (140-400); RED BLOOD COUNT 4.07 x10^6/uL (3.50-5.40); RED CELL DISTRIBUTION WIDTH 15.7 % (11.5-14.5); WHITE BLOOD COUNT 10.6 x10^3/uL (4.0-11.0)
[2019-02-14 22:15] LABS: SALIC 1.8 mg/dL (2.8-20.0)
[2019-02-14 22:16] LABS: ETHANOL < 10 mg/dL (0-10)
[2019-02-14 22:24] LABS: BACTERIA,URINE FEW /HPF (0-FEW); BARBITURATES NEG (NEG); BENZODIAZEPINES POS (NEG); BILIRUBIN,URINE NEG (NEG); CANNABINOIDS POS (NEG); CLARITY,URINE CLOUDY; COCAINE NEG (NEG); COLOR,URINE YELLOW; GLUCOSE,URINE NEG (NEG); METHADONE NEG (NEG); NITRITE,URINE NEG (NEG); OPIATES POS (NEG); PHENCYCLIDINE NEG (NEG); RBC,URINE 0 /HPF (0-2); SQUAMOUS EPITHELIAL CELL,UR MOD /LPF; UROBILINOGEN,URINE 1 mg/dL (0.2 mg/dL); WBC,URINE 0 /HPF (0-4)
[2019-02-14 22:25] LABS: ACETAMIN 2.8 mcg/mL (10-30)
[2019-02-14 22:26] LABS: AMPHETAMINE/METHAMPHETAMINE NEG (NEG)
[2019-02-14 22:27] LABS: ALBUMIN 2.7 g/dL (3.4-5.0); CALCIUM 9.1 mg/dL (8.5-10.1); CREATININE 0.7 mg/dL (0.6-1.0); DIRECT BILIRUBIN 0.2 mg/dL (0.0-0.2); GFR 82.5; MAGNESIUM 1.3 mg/dL (1.8-2.4); POTASSIUM 4.2 mmol/L (3.5-5.1); TOTAL BILIRUBIN 0.5 mg/dL (0.2-1.0); TOTAL PROTEIN 6.1 g/dL (6.4-8.2)
[2019-02-14 22:48] LABS: BGAS PH 7.35 (7.35-7.45)
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
[2019-02-15] VITALS (10 sets, daily range): BP systolic 91–147; BP diastolic 46–70
--- NOTE | 2019-02-15 00:05 | RAD ---
CT scan of the head without contrast 02/14/2019 Clinical History: Syncope. Mental status changes. Technique: Unenhanced, contiguous, 5 mm axial sections were obtained through the head. One or more of the following individualized dose reduction techniques were utilized for this study: 1. Automated exposure control. 2. Adjustment of the mA and/or kV according to patient size. 3. Use of iterative reconstruction technique. Findings: Comparison study is dated 05/09/2015. There is generalized parenchymal atrophy. Areas of decreased attenuation are seen within the periventricular and subcortical white matter of both cerebral hemispheres consistent with areas of small vessel ischemic disease. No acute parenchymal abnormality is seen. No extra-axial fluid collection is noted. No skull fracture is seen. Impression: No acute intracranial abnormality is seen. Electronically signed by: Jame Cullen MD (02/15/2019 12:02 AM) [facility]
[2019-02-15] MEDS ORDERED: IOHEXOL 350 MG/ML 100 ML VIAL. IV ONE (00:15)
[2019-02-15] MEDS ORDERED: ONDANSETRON PF 4 MG/2 ML VIAL. IV PRN (00:30)
[2019-02-15] MEDS ORDERED: CONTRAST GIVEN MC PRN (00:30)
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
[2019-02-15] MEDS ORDERED: MAGNESIUM SULFATE 2GM 50 ML IV ONE (01:30)
[2019-02-15] MEDS ORDERED: ACETAMINOPHEN 500 MG TABLET PO ONE (06:15)
[2019-02-15] MEDS ORDERED: CARI350T14 PO (07:37)
[2019-02-15 07:42] LABS: HEMATOCRIT 33.9 % (36.0-47.0); HEMOGLOBIN 11.4 g/dL (12.0-15.5); RED BLOOD COUNT 3.54 x10^6/uL (3.50-5.40); RED CELL DISTRIBUTION WIDTH 15.3 % (11.5-14.5); WHITE BLOOD COUNT 6.7 x10^3/uL (4.0-11.0)
[2019-02-15 07:56] LABS: ALBUMIN 2.3 g/dL (3.4-5.0); ALBUMIN/GLOBULIN RATIO 0.8 (1.0-1.7); CALCIUM 8.7 mg/dL (8.5-10.1); CREATININE 0.6 mg/dL (0.6-1.0); GFR 98.5; MAGNESIUM 1.7 mg/dL (1.8-2.4); POTASSIUM 3.8 mmol/L (3.5-5.1); TOTAL BILIRUBIN 0.5 mg/dL (0.2-1.0); TOTAL PROTEIN 5.2 g/dL (6.4-8.2)
[2019-02-15] MEDS: IPRATRPIUM/ALBUTEROL 0.5/2.5MG 3 ML NEBU. NEB SCH ×2 (08:00→09:36)
--- NOTE | 2019-02-15 08:50 | RAD ---
Examination: Bilateral Lower Extremity Venous Doppler Ultrasound History: Elevated d-dimer, edema Comparison: None Procedure: Stephens scale, color flow 2D and spectal waveform analysis images are obtained with and without compression in the area of the common femoral vein, superficial femoral vein - femoral vein junction, main femoral vein (superficial femoral vein) and popliteal vein. Veins of the proximal calf are also imaged. Findings: There is normal duplex flow, color flow and compressibility of all visualized vein segments. No evidence of deep venous thrombus is present. Impression: No evidence of DVT in the visualized bilateral lower extremity venous system. Electronically signed by: Hang Lee MD (02/15/2019 8:47 AM) [id number]
[2019-02-15] MEDS ORDERED: ENOXAPARIN 40 MG/0.4 ML SYRINGE. SQ SCH (09:00)
[2019-02-15] MEDS ORDERED: ENOXAPARIN ** NOTE DOSE ** SYRINGE SQ SCH (09:00)
[2019-02-15] MEDS ORDERED: KETOROLAC 30 MG/ML VIAL. IV PRN (10:00)
[2019-02-15] MEDS ORDERED: KETOROLAC 30 MG/ML VIAL. ONE (10:01)
--- NOTE | 2019-02-15 14:54 | SSS ---
ADMIT DATE: 02/15/2019 HISTORY OF PRESENT ILLNESS: The patient is a 73-year-old female patient who was brought to the Emergency Room as her boyfriend found her unresponsive and did not seem to be breathing right. He could not get her to wake up and she seemed to have taken some of her pain medication. According to her, she was on hydrocodone and took about two of them. Her boyfriend said that she thinks that she took too much. She gets pills everywhere. She does not put them in the daily boxes that actually she should. She apparently received Narcan at scene by paramedics, did allow the patient to wake up with noxious stimuli. By the time she arrived to the Emergency Room, where was still sedated, does respond to noxious stimuli and moves all her extremities; however, she falls back to sleep easily. She was found to have in her position, a bottle of oxycodone 7.5/325. She follows up with Dr. Garcia. She has a history of chronic back pain. She was extensively investigated and her toxic screen showed that she was positive for opiates as well as benzodiazepine and cannabinoids. However, her white cell count and CBC was normal. Her blood gases were within acceptable range and her chemistry showed that she was hypomagnesemic. She was admitted for observation and by the time I saw her, she was awake, alert, and she was questioned by the nursing staff and myself, and apparently there was no suicidal intention. PAST MEDICAL HISTORY: Significant for hypertension, hyperlipidemia, chronic back pain, COPD and osteoarthritis. PAST SURGICAL HISTORY: Significant for back surgery, bilateral cataract extraction, LASIK surgery, appendectomy, total abdominal hysterectomy, bilateral salpingo-oophorectomy. ALLERGIES: She is allergic to PAROXETINE. MEDICATIONS: She is currently on following medications: She is on Soma 350 mg twice a day, simvastatin 40 mg at bedtime, lisinopril 20 mg once a day, hydrocodone/APAP 10/325 one tablet 4 times a day, trazodone 300 mg at bedtime, alprazolam 0.5 mg at bedtime, ranitidine 300 mg daily. FAMILY HISTORY: She has 3 brothers and 2 were , one at the age of 68 because of myocardial infarction, one at the age of 71, again with myocardial infarction. Her third brother is still alive and healthy. She has two sisters that are alive and healthy. Her father at the age of 59 because of brain tumor and mother at the age of 73 because of lung cancer. SOCIAL HISTORY: She is and lives with her significant other that she met about 3 years ago. She has one daughter from previous marriage. She smokes a pack a day, does not drink alcohol, but uses marijuana. 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 REVIEW OF SYSTEMS: Unremarkable. PHYSICAL EXAMINATION: GENERAL: When I saw her this afternoon, she was awake, alert, responding appropriately, pale, cachectic, but no jaundice or cyanosis. No lymphadenopathy, no thyromegaly. No jugular venous distension. No lower limb edema. VITAL SIGNS: Her heart rate was 68, blood pressure 119/70, temperature was 98.1, respiratory rate was 18 and oxygen saturation was 96%. HEAD, EYES, EARS, NOSE AND THROAT: Showed normocephalic, atraumatic. NECK: Supple. HEART: Showed normal first and second sounds. No gallop, rub or murmur. CHEST: Clear to auscultation. No crepitation or rhonchi. ABDOMEN: Scaphoid, soft, nontender. NEUROLOGIC: She was awake, alert, responding appropriately. All cranial nerves intact. EXTREMITIES: She moves extremities without difficulty. She ambulates without assistance or assistive devices. LABORATORY DATA: On admission, her white cell count was 10,600, hemoglobin 13, hematocrit 39, MCV 98 and platelet count 292,000. Her blood gases showed a pH of 7.35, pCO2 of 43, pO2 of 62, bicarbonate 24, and oxygen saturation was 90% on room air. Her prothrombin time was 11.2, INR 1.1, aPTT was 31 and D-dimer was 1.18 mg/dL. Her serum sodium was 140, potassium 4.2, chloride 104, bicarbonate 30, anion gap of 6, BUN 7, creatinine 0.7, estimated GFR was 82.5 mL per minute. Her glucose was 84, calcium was 9.1, magnesium was 1.3. Her total bilirubin, AST, ALT, alkaline phosphatase were normal. Her hepatic peptide was 571. Troponin was 0.018. Total protein was 6.1, albumin was 2.7. Lipase was 24. Her urinalysis was essentially unremarkable. The urine was yellow, cloudy with a pH of 6, specific gravity 1.025. There is small amount of protein. The urine was negative for glucose, ketones, blood, nitrite and leukocyte esterase, no rbc's, no wbc's. Her toxic screen was positive for opiates, benzodiazepine, and cannabinoids. The patient had extensive imaging including a chest x-ray, which showed the cardiac silhouette is mildly enlarged. The thoracic aorta is tortuous. Prominence of pulmonary vasculature is seen throughout suggesting mild congestive heart failure, mild elevation of the right hemidiaphragm is noted. No pneumothorax or pleural effusion is seen. The osseous structures are unchanged. Given her altered mental status, she had a CT scan of the head, which showed that there is generalized parenchymal atrophy, areas of decreased attenuation are seen within the periventricular and subcortical white matter of both cerebral hemispheres consistent with areas of small vessel ischemic disease, no acute parenchymal abnormality seen. No extraaxial fluid collection is noted. No skull fracture is seen. CT angio of the chest showed that there is no CT evidence of pulmonary emboli, moderate atelectasis in the bilateral lower lobes. Her venous Doppler ultrasound of both lower extremities showed no evidence of DVT in the visualized bilateral lower extremity venous system. ASSESSMENT AND PLAN: The patient actually was admitted to the ICU, and was for observation and did very well and she was awake, alert, and we have had discussion with her daughter and her significant other. Her medications are now be put in a lock box and he should be basically taking care of the medications so that she does not get mixed up. The patient was discharged home to continue all her medication. FINAL DISCHARGE DIAGNOSES: Narcotic overdose, mental status changes, hypomagnesemia, resolved. Severe malnutrition with serum albumin of 2.7, tobacco and marijuana abuse, chronic obstructive pulmonary disease, hypertension, and chronic back pain. SINAI PETTIT MD DR: AJAY/sincere JOB#: [id number] / [id number]
[2019-02-15] MEDS ORDERED: HYDROcodone/APAP 10/325 1 TAB TABLET PO SCH (17:00)
[2019-02-15] MEDS ORDERED: FAMOTIDINE 20 MG TABLET PO SCH (21:00)
[2019-02-15] MEDS ORDERED: CARISOPRODOL 350 MG TABLET PO SCH (21:00)
[2019-02-15] MEDS ORDERED: ALPRAZolam 0.5 MG TABLET PO SCH (21:00)
[2019-02-15] MEDS ORDERED: traZODone 150 MG TABLET. PO SCH (21:00)
[2019-02-15] MEDS ORDERED: SIMVASTATIN 40 MG TABLET. PO SCH (21:00)
[2019-02-16] MEDS ORDERED: IPRATRPIUM/ALBUTEROL 0.5/2.5MG 3 ML NEBU. NEB PRN (08:00)
[2019-02-16] MEDS ORDERED: MAGNESIUM OXIDE 400 MG TABLET PO SCH (09:00)
[2019-02-16] MEDS ORDERED: LISINOPRIL 20 MG TABLET PO SCH (09:00)
== END 2019-02-15 13:02 | disposition home or self-care (01) ==
LOC: ER 21:24 → ICU 21:30 → INTOOBSV 21:30
PROVIDERS: ADMIT Family Medicine; ATTEND Internal Medicine
DX: T40.601A Poisoning by unspecified narcotics, accidental (unintentional), initial encounter (principal); R41.82 Altered mental status, unspecified; E83.42 Hypomagnesemia; I11.0 Hypertensive heart disease with heart failure; I50.9 Heart failure, unspecified; J44.9 Chronic obstructive pulmonary disease, unspecified; E78.5 Hyperlipidemia, unspecified; E78.00 Pure hypercholesterolemia, unspecified; E43 Unspecified severe protein-calorie malnutrition; F41.9 Anxiety disorder, unspecified; M19.90 Unspecified osteoarthritis, unspecified site; F32.9 Major depressive disorder, single episode, unspecified; F12.10 Cannabis abuse, uncomplicated; Z80.1 Family history of malignant neoplasm of trachea, bronchus and lung; Z82.49 Family history of ischemic heart disease and other diseases of the circulatory system; Z90.49 Acquired absence of other specified parts of digestive tract; Z90.710 Acquired absence of both cervix and uterus; Z98.41 Cataract extraction status, right eye; Z98.42 Cataract extraction status, left eye; F17.210 Nicotine dependence, cigarettes, uncomplicated; Z88.8 Allergy status to other drugs, medicaments and biological substances; Y92.89 Other specified places as the place of occurrence of the external cause
CPT/HCPCS: 36415; 70450; 71045; 71275; 80048; 80053; 80076; 80307; 80329; 81001; 82553; 82803; 83690; 83735; 83880; 84443; 84484; 85025; 85027; 85379; 85610; 85730; 87641; 93970; 96361; 96365; 96366; 96375; 97161; 99284; G0378; G0480; J1885; J3475; J7120; Q9967; G0379; 82003

== ENCOUNTER 2019-07-08 11:48 | Emergency (ER) | payer OTHER ==
[2019-07-08 12:03] VITALS: BP 143/73
[2019-07-08] MEDS ORDERED: HYDROcodone/APAP 5/325MG 1 TAB TABLET PO ONE (12:15)
--- NOTE | 2019-07-08 12:37 | PHYS DOC ---
Past History Past Medical History: GERD, High Cholesterol, Hypertension Past Surgical History: Appendectomy, Cholecystectomy, Hysterectomy Smoking: Cigarettes Alcohol Use: None Drug Use: None Adult General Chief Complaint Chief Complaint: MULTIPLE COMPLAINTS HPI HPI Patient is a 73-year-old female presents with head pain and low back/tailbone pain after a mechanical trip and fall, she got up from the couch to quickly became dizzy and fell backwards, striking her head on the coffee table. This happened 2 days ago. There was no chest pain or difficulty breathing. Increased pain with movement. No nausea or vomiting. No difficulty seeing. No new weakness or numbness in the arms or legs. No loss of bowel or bladder control. Patient has taken no medicine for pain. Worse discomfort with movement better with holding still. Pain is moderate in intensity.[] Review of Systems Review of Systems Constitutional: Denies fever or chills [] Eyes: Denies change in visual acuity, redness, or eye pain [] HENT: Denies nasal congestion or sore throat [] Respiratory: Denies cough or shortness of breath [] Cardiovascular: No chest pain or palpitations[] GI: Denies abdominal pain, nausea, vomiting, bloody stools or diarrhea [] : Denies dysuria or hematuria [] Musculoskeletal: See history of present illness[] Integument: Denies rash or skin lesions [] Neurologic: Denies focal weakness or sensory changes, see history of present illness [] Endocrine: Denies polyuria or polydipsia [] All other systems were reviewed and found to be within normal limits, except as documented in this note. Current Medications Current Medications Current Medications Medications (Trade) Dose Ordered Sig/[facility] Start Time Stop Time Status Last Admin Dose Admin Acetaminophen/ Hydrocodone Bitart (Lortab 5/325) 1 tab 1X ONCE 07/08/19 12:15 07/08/19 12:17 DC 07/08/19 12:27 1 TAB Allergies Allergies Allergies Coded Allergies Type Severity Reaction Last Updated Verified paroxetine HCl Allergy Mild Diarrhea 12/16/18 Yes Physical Exam Physical Exam Constitutional: Well developed, well nourished, mild discomfort, non-toxic appearance. [] HENT: Normocephalic, tenderness left parietal region/occipital region. No step- off. No crepitus. bilateral external ears normal, TMs are clear without any blood or fluid. Oropharynx moist, no oral exudates, nose normal. [] Eyes: PERRLA, EOMI, conjunctiva normal, no discharge. [] Neck: Normal range of motion, no tenderness, supple, no stridor. [] Cardiovascular:Heart rate regular rhythm, no murmur [] Lungs & Thorax: Bilateral breath sounds clear to auscultation [] Abdomen: Bowel sounds normal, soft, no tenderness, no masses, no pulsatile masses. [] Skin: Warm, dry, no erythema, no rash. Abrasion right lateral elbow.[] Back: Tenderness in the low sacral region., no CVA tenderness. [] Extremities: No tenderness, no cyanosis, no clubbing, ROM intact, no edema. [] Neurologic: Alert and oriented X 3, normal motor function, normal sensory f unction, no focal deficits noted. [] Psychologic: Affect normal, judgement normal, mood normal. [] Current Patient Data Vital Signs Vital Signs Date Time Temp Pulse Resp B/P (MAP) Pulse Ox O2 Delivery O2 Flow Rate FiO2 07/08/19 12:03 98.0 80 22 100 Room Air EKG EKG [] Radiology/Procedures Radiology/Procedures CT HEAD AND CERVICAL SPINE WO History: Fall. Head injury. Comparison: October 27, 2018 Technique: Noncontrast CT imaging was performed of the head and cervical spine. Coronal and sagittal reconstructions were performed. Exposure: One or more of the following individualized dose reduction techniques were utilized for this examination: 1. Automated exposure control 2. Adjustment of the mA and/or kV according to patient size 3. Use of iterative reconstruction technique. Findings: Head CT: No intracranial hemorrhage. No mass effect. No hydrocephalus. Extra-axial spaces are unremarkable. Imaged orbits are unremarkable. Imaged paranasal sinuses and mastoid air cells are clear. Cervical spine CT: Minimal grade 1 anterolisthesis C4 on C5. Normal vertebral body height. No fracture. Moderate multilevel degenerative disc disease most prominent C5-C6 and C6-C7. Advanced facet arthropathy most prominent right C3-C4 and C4-C5. No high-grade canal stenosis. Multilevel neural foraminal narrowing. Soft tissues unremarkable. Impression: 1. No acute intracranial abnormality. 2. No acute fracture or subluxation of the cervical spine. 3. Moderate multilevel cervical spondylosis. PROCEDURE: LUMBAR SPINE 2-3V Indication: Fall with tailbone pain and low back pain for 2 days TECHNIQUE: Multiple views of the lumbar spine and of the sacrococcygeal spine COMPARISON: Chest x-ray from 12/16/2018 FINDINGS: There is very subtle levoscoliosis of the lumbar spine. There are 5 lumbar type vertebral bodies. No significant loss of vertebral body heights to suggest high-grade compression deformities. Advanced L4-L5 degenerative disc disease noted. Lower lumbar spine moderate to advanced facet arthropathy noted. Stable mild loss of L1 vertebral body height suggests old mild compression deformity. SI joints within normal limits. There is no step-off deformity seen in the sacrococcygeal spine. IMPRESSION: 1. No apparent step-off deformity seen to suggest fracture in the sacrococcygeal spine. No compression deformities. 2. Lower lumbar spine degenerative disc disease with associated facet arthropathy. [] Course & Med Decision Making Course & Med Decision Making Pertinent Labs and Imaging studies reviewed. (See chart for details) ED course: Patient arrived, was placed in bed, and tolerated exam well. She was given oral pain medicine which mildly improved her discomfort. She was transported to and from radiology with any complications. After return of the imaging findings, these were discussed with the patient and her who voiced understanding. All questions were answered. She was discharged in improved condition. Medical decision making: There is no evidence of intracranial mass or bleed. No skull fracture. No cervical spine fracture. No lumbar spine fracture. No evidence of cauda equina syndrome, neurologic or vascular compromise. We will attempt outpatient pain medication. No evidence of spinal cord syndrome.[] Dragon Disclaimer Dragon Disclaimer This electronic medical record was generated, in whole or in part, using a voice recognition dictation system. Departure Departure: Impression: Primary Impression: Closed head injury Additional Impression: Back contusion Disposition: 01 HOME, SELF-CARE Condition: IMPROVED Referrals: YANIRA GUTIERREZ MD (PCP) Follow-up in 2 days Patient Instructions: Contusion, Head Injury, Adult Additional Instructions: Follow-up with your regular doctor in 2 days. Apply warm compresses for 15 minutes at a time, at least 4 times a day. Take the medication as prescribed. Return to the ER if worsening pain, loss of bowel or bladder control, or any other concerns. Scripts Oxaprozin (OXAPROZIN) 600 Mg Tablet 600 MG PO BID for pain, #20 TAB Prov: GIA GEORGE DO 07/08/19 Orphenadrine Citrate (ORPHENADRINE CITRATE) 100 Mg Tablet.er 100 MG PO BID for BACK PAIN, #20 TAB.SR Prov: GIA GEORGE DO 07/08/19 Problem Qualifiers Primary Impression: Closed head injury Encounter type: initial encounter Qualified Codes: S09.90XA - Unspecified injury of head, initial encounter Additional Impression: Back contusion Encounter type: initial encounter Laterality: unspecified laterality Qualified Codes: S20.229A - Contusion of unspecified back wall of thorax, initial encounter GIA GEORGE DO Jul 08, 2019 12:37
--- NOTE | 2019-07-08 13:16 | RAD ---
Indication: Fall with tailbone pain and low back pain for 2 days TECHNIQUE: Multiple views of the lumbar spine and of the sacrococcygeal spine COMPARISON: Chest x-ray from 12/16/2018 FINDINGS: There is very subtle levoscoliosis of the lumbar spine. There are 5 lumbar type vertebral bodies. No significant loss of vertebral body heights to suggest high-grade compression deformities. Advanced L4-L5 degenerative disc disease noted. Lower lumbar spine moderate to advanced facet arthropathy noted. Stable mild loss of L1 vertebral body height suggests old mild compression deformity. SI joints within normal limits. There is no step-off deformity seen in the sacrococcygeal spine. IMPRESSION: 1. No apparent step-off deformity seen to suggest fracture in the sacrococcygeal spine. No compression deformities. 2. Lower lumbar spine degenerative disc disease with associated facet arthropathy. Electronically signed by: Daniel Pillai DO (07/08/2019 1:13 PM) [facility]
--- NOTE | 2019-07-08 13:20 | RAD ---
CT HEAD AND CERVICAL SPINE WO History: Fall. Head injury. Comparison: October 27, 2018 Technique: Noncontrast CT imaging was performed of the head and cervical spine. Coronal and sagittal reconstructions were performed. Exposure: One or more of the following individualized dose reduction techniques were utilized for this examination: 1. Automated exposure control 2. Adjustment of the mA and/or kV according to patient size 3. Use of iterative reconstruction technique. Findings: Head CT: No intracranial hemorrhage. No mass effect. No hydrocephalus. Extra-axial spaces are unremarkable. Imaged orbits are unremarkable. Imaged paranasal sinuses and mastoid air cells are clear. Cervical spine CT: Minimal grade 1 anterolisthesis C4 on C5. Normal vertebral body height. No fracture. Moderate multilevel degenerative disc disease most prominent C5-C6 and C6-C7. Advanced facet arthropathy most prominent right C3-C4 and C4-C5. No high-grade canal stenosis. Multilevel neural foraminal narrowing. Soft tissues unremarkable. Impression: 1. No acute intracranial abnormality. 2. No acute fracture or subluxation of the cervical spine. 3. Moderate multilevel cervical spondylosis. Electronically signed by: John Nichole DO (07/08/2019 1:17 PM) [facility]
[2019-07-08] MEDS ORDERED: ORPH-16 PO (13:33)
[2019-07-08] MEDS ORDERED: OXAP600T2 PO (13:33)
== END 2019-07-08 13:34 | disposition home or self-care (01) ==
LOC: ER 11:48
DX: S30.0XXA Contusion of lower back and pelvis, initial encounter (principal); S09.8XXA Other specified injuries of head, initial encounter; S50.311A Abrasion of right elbow, initial encounter; K21.9 Gastro-esophageal reflux disease without esophagitis; E78.00 Pure hypercholesterolemia, unspecified; I10 Essential (primary) hypertension; F17.210 Nicotine dependence, cigarettes, uncomplicated; Z88.8 Allergy status to other drugs, medicaments and biological substances; W01.0XXA Fall on same level from slipping, tripping and stumbling without subsequent striking against object, initial encounter; Y93.89 Activity, other specified; Y92.89 Other specified places as the place of occurrence of the external cause; Y99.8 Other external cause status
CPT/HCPCS: 70450; 72100; 72125; 72220; 99284-25

== ENCOUNTER 2019-09-03 15:31 | Emergency (ER) | payer OTHER ==
[~2019-09-03] VITALS: Ht 167.6 cm; Wt 52.2 kg
[~2019-09-03 15:31] MED LIST changes: +ORPH-16 PO; +OXAP600T2 PO; +SIMV20TA18 PO; -SIMV20TA3 PO; +SIMV40TA18 PO; -SIMV40TA3 PO
[2019-09-03 15:44] VITALS: BP 188/127
--- NOTE | 2019-09-03 15:49 | PHYS DOC ---
Past History Past Medical History: GERD, High Cholesterol, Hypertension Past Surgical History: Appendectomy, Cholecystectomy, Hysterectomy Smoking: Cigarettes Alcohol Use: None Drug Use: None Adult General Chief Complaint Chief Complaint: FINGER INJURY HPI HPI Pt is a 73 year old female who presents to the ED for evaluation. She states that on , she stumbled, and struck her left hand against a wall, somehow injuring her pinky. She states that she thought it would get better but presents today for evaluation. She denies any other injuries or painful areas. Palpation and movement of her finger worsens the pain. There are no alleviating factors to her symptoms. She denies numbness or weakness. Review of Systems Review of Systems Constitutional: Denies fever or chills [] Respiratory: Denies cough or shortness of breath [] Cardiovascular: No additional information not addressed in HPI [] Musculoskeletal: Denies back pain or joint pain , except left pinky[] Integument: Denies rash or skin lesions [] Neurologic: Denies focal weakness or sensory changes [] Allergies Allergies Allergies Coded Allergies Type Severity Reaction Last Updated Verified paroxetine HCl Allergy Mild Diarrhea 12/16/18 Yes Physical Exam Physical Exam PHYSICAL EXAM: HEENT: Atruamatic NECK: Supple, normal ROM, non-tender. CARDIAC: Regular Rate and Rhythm LUNGS: Clear Bilaterally, although breath sounds are diminished. EXTREMITIES: There is tenderness to palpation at the base of the left pinky, from the PIP joint, proximally towards the MCP joint. There is somewhat of a volar depression and deformity of the proximal aspect of the proximal phalanx, suggesting fracture, range of motion is limited but somewhat present. Distal capillary refill and sensation are unremarkable. The remainder the extremities are unremarkable., EKG EKG [] Radiology/Procedures Radiology/Procedures ER physician preliminary x-ray interpretation: Proximal phalanx fracture.[] Course & Med Decision Making Course & Med Decision Making A metacarpal head block was placed, using 2% lidocaine, 4 mL, with good anesthetic result. The patient's finger was then straightened somewhat, and splinted in place, to help reduce the deformity. I discussed test results with the patient, the need for orthopedic follow-up and return precautions. Dragon Disclaimer Dragon Disclaimer This electronic medical record was generated, in whole or in part, using a voice recognition dictation system. Departure Departure: Impression: Primary Impression: Phalanx, proximal fracture of finger Disposition: 01 HOME, SELF-CARE Condition: STABLE Referrals: YANIRA GUTIERREZ MD (PCP) Patient Instructions: Finger Fracture Additional Instructions: Follow-up with orthopedics, either at [phone], or [facility], . Please call to schedule an appointment. Keep splint clean and dry, and keep in place until follow-up with orthopedics and otherwise instructed. ROSA MARIA RAMOS MD Sep 03, 2019 15:49
--- NOTE | 2019-09-03 16:13 | RAD ---
3 view study of the left hand Clinical indications: Fifth digit injury and pain. FINDINGS: There is a fracture of the proximal metaphysis and epiphysis of the fifth proximal phalanx. There is intra-articular extension but no dislocation is evident. No lytic process is evident. IMPRESSION: Comminuted fracture of the proximal aspect of the fifth proximal phalanx. Electronically signed by: Hakan Mccollum MD (09/03/2019 4:11 PM) [facility]
== END 2019-09-03 16:21 | disposition home or self-care (01) ==
LOC: ER 15:31
DX: S62.617A Displaced fracture of proximal phalanx of left little finger, initial encounter for closed fracture (principal); K21.9 Gastro-esophageal reflux disease without esophagitis; E78.00 Pure hypercholesterolemia, unspecified; I10 Essential (primary) hypertension; F17.210 Nicotine dependence, cigarettes, uncomplicated; Z88.8 Allergy status to other drugs, medicaments and biological substances; W22.01XA Walked into wall, initial encounter; Y93.89 Activity, other specified; Y92.89 Other specified places as the place of occurrence of the external cause; Y99.8 Other external cause status
CPT/HCPCS: 26742; 73130; 99284

== ENCOUNTER 2019-10-08 16:59 | Emergency (ER) | payer MEDICARE, OTHER ==
[~2019-10-08] VITALS: Ht 167.6 cm; Wt 54.4 kg
[2019-10-08 17:10] VITALS: BP 153/61
[2019-10-08] MEDS ORDERED: HYDROcodone/APAP 10/325 1 TAB TABLET PO ONE (17:30)
--- NOTE | 2019-10-08 17:59 | PHYS DOC ---
Past History Past Medical History: GERD, High Cholesterol, Hypertension Past Surgical History: Appendectomy, Cholecystectomy, Hysterectomy Smoking: Cigarettes Additional Smoking Information: 1-2 PACKS/DAY Alcohol Use: None Drug Use: None Adult General Chief Complaint Chief Complaint: HAND PROBLEM HPI HPI Patient is a 73-year-old female presenting with hand pain. She is requesting a prescription for narcotics. I reviewed the PD MP patient received 2 tramadol prescriptions earlier this week and 140 tablets of hydrocodone on September 15. He also takes other sedatives. I told her that I could not prescribe any more narcotics. I did give her a single tablet while she was here. I encouraged her to follow up with primary care I also instructed on discharge instructions get blood pressure checked in 5 days noted elevated probably related to some pain Review of Systems Review of Systems Constitutional: Denies fever or chills [] Eyes: Denies change in visual acuity, redness, or eye pain [] HENT: Denies nasal congestion or sore throat [] Respiratory: Denies cough or shortness of breath [] Cardiovascular: No additional information not addressed in HPI [] GI: Denies abdominal pain, nausea, vomiting, bloody stools or diarrhea [] : Denies dysuria or hematuria [] Musculoskeletal: Denies back pain or joint pain [] Integument: Denies rash or skin lesions [] Neurologic: Denies headache, focal weakness or sensory changes [] Endocrine: Denies polyuria or polydipsia [] All other systems were reviewed and found to be within normal limits, except as documented in this note. Current Medications Current Medications Current Medications Medications (Trade) Dose Ordered Sig/[facility] Start Time Stop Time Status Last Admin Dose Admin Acetaminophen/ Hydrocodone Bitart (Lortab 10/325) 1 tab 1X ONCE 10/08/19 17:30 10/08/19 17:31 DC 10/08/19 17:41 1 TAB Allergies Allergies Allergies Coded Allergies Type Severity Reaction Last Updated Verified paroxetine HCl Allergy Mild Diarrhea 12/16/18 Yes Physical Exam Physical Exam Constitutional: Well developed, well nourished, no acute distress, non-toxic appearance. [] HENT: Normocephalic, atraumatic, bilateral external ears normal, oropharynx moist, no oral exudates, nose normal. [] Eyes: PERRLA, EOMI, conjunctiva normal, no discharge. [] Neck: Normal range of motion, no tenderness, supple, no stridor. [] Pulmonary: Normal respiratory effort no increased work of breathing no obvious chest wall trauma Extremities: Left hand in cast Neurologic: Alert and oriented X 3, normal motor function, normal sensory function, no focal deficits noted. [] Psychologic: Affect normal, judgement normal, mood normal. [] Current Patient Data Vital Signs Vital Signs Date Time Temp Pulse Resp B/P (MAP) Pulse Ox O2 Delivery O2 Flow Rate FiO2 10/08/19 17:41 24 Room Air 10/08/19 17:10 98.6 74 96 Lab Results Mild Temperature (Fahrenheit): * 98.6 degrees F (97.6-99.5) Patient Temperature * 98.6 degrees F (97.5-99.5) Temperature Source * Oral Blood Pressure Systolic * 153 mm Hg (100-140) H Blood Pressure Diastolic * 61 mm Hg (60-100) Blood Pressure Mean * 91 mm Hg Blood Pressure Location * Right Arm Blood Pressure Source * Automatic Cuff Pulse Rate * 74 beats per minute (60-90) Pulse Assessment Method * Monitor Respiratory Rate * 20 breaths per minute (12-24) Oxygen Delivery Method * Room Air Bedside Pulse Oximetry * 96 % EKG EKG [] Radiology/Procedures Radiology/Procedures [] Course & Med Decision Making Course & Med Decision Making Pertinent Labs and Imaging studies reviewed. (See chart for details) [] Dragon Disclaimer Dragon Disclaimer This electronic medical record was generated, in whole or in part, using a voice recognition dictation system. Departure Departure: Impression: Primary Impression: Hand pain Disposition: HOME, SELF-CARE Condition: STABLE Patient Instructions: Hand Fracture Additional Instructions: get your blood pressure checked in 5 days. KAREN WILL MD Oct 08, 2019 17:59
== END 2019-10-08 17:50 | disposition home or self-care (01) ==
LOC: ER 16:59
DX: M79.642 Pain in left hand (principal); K21.9 Gastro-esophageal reflux disease without esophagitis; E78.00 Pure hypercholesterolemia, unspecified; I10 Essential (primary) hypertension; F17.210 Nicotine dependence, cigarettes, uncomplicated; Z88.8 Allergy status to other drugs, medicaments and biological substances
CPT/HCPCS: 99282

== ENCOUNTER 2020-05-03 14:27 | Emergency (ER) | payer MEDICARE ==
[~2020-05-03] VITALS: Ht 167.6 cm; Wt 51.3 kg
[2020-05-03 14:42] VITALS: BP 170/93
[2020-05-03] MEDS ORDERED: IV NORMAL SALINE 1,000ML 1,000 ML IV SCH (14:50)
[2020-05-03] MEDS ORDERED: PROCHLORPERAZINE 10 MG/2 ML VIAL. IVP ONE (15:00)
--- NOTE | 2020-05-03 15:05 | PHYS DOC ---
Past History Past Medical History: GERD, High Cholesterol, Hypertension Past Surgical History: Appendectomy, Cholecystectomy, Hysterectomy Smoking: Cigarettes Alcohol Use: None Drug Use: None Adult General Chief Complaint Chief Complaint: NAUSEA/VOMITING/DIARRHEA HPI HPI Patient is a 74-year-old female who presents for 3-day history of nausea, vomit, and diarrhea. Patient reports last meal when feeling well was a burger at [employer], she is unsure if it was cooked thoroughly or not, no other family members ate at said location so it is not known if they are sick as well. Pepto-Bismol has been taken with mild relief in symptoms, attempted p.o. intake makes worse. Patient reports feelings of nausea and nonbloody nonbilious emesis after attempted p.o. intake past 3 days. Patient also reports diarrhea "every time I go" which is typically 2-3 times per day for her, no changes in frequency since onset of symptoms. Timing has been constant since onset. Patient denies any chest, abdominal, or urinary pain. She denies any fever or recent travel. She reports her daughter is known positive COVID-19; however, patient has not physically seen daughter in 3+ weeks. Patient transported here by via POV for evaluation given duration of symptoms and concern for dehydration Review of Systems Review of Systems Fourteen body systems of review of systems have been reviewed. See HPI for pertinent positives and negative responses, other holloway all other systems are negative, non-pertinent or non-contributory Allergies Allergies Allergies Coded Allergies Type Severity Reaction Last Updated Verified paroxetine HCl Allergy Mild Diarrhea 12/16/18 Yes Physical Exam Physical Exam Constitutional: Well developed, well nourished, no acute distress, non-toxic appearance. Appears clinically dehydrated [] HENT: Normocephalic, atraumatic, bilateral external ears normal, oropharynx moist, no oral exudates, nose normal. [] Eyes: PERRLA, EOMI, conjunctiva normal, no discharge. [] Neck: Normal range of motion, no tenderness, supple, no stridor. [] Cardiovascular:Heart rate regular rhythm, no murmur [] Lungs & Thorax: Bilateral breath sounds clear to auscultation [] Abdomen: Bowel sounds normal, soft, no tenderness, no masses, no pulsatile masses. No guarding, no rebound, no peritoneal signs, nonsurgical abdomen [] Skin: Warm, dry, no erythema, no rash. [] Back: No tenderness, no CVA tenderness. [] Extremities: No tenderness, no cyanosis, no clubbing, ROM intact, no edema. [] Neurologic: Alert and oriented X 3, grossly normal motor and sensory function, no focal deficits noted. [] Psychologic: Affect normal, judgement normal, mood normal. [] Current Patient Data Vital Signs Vital Signs Date Time Temp Pulse Resp B/P (MAP) Pulse Ox O2 Delivery O2 Flow Rate FiO2 05/03/20 14:42 98.6 111 26 170/93 (118) 98 EKG EKG EKG obtained and interpreted by myself at 1511 hrs. as normal sinus rhythm at 99 bpm, QTc 457 otherwise intervals unremarkable, no axis deviation, no acute ischemic findings, no STEMI Radiology/Procedures Radiology/Procedures PROCEDURE: PORTABLE CHEST 1V AP portable chest 05/03/2020. Reason for exam: Nausea and vomiting. Comparison is made with a study of 02/14/2019. No new infiltrate or effusion is seen. Heart size and pulmonary vascularity appear normal. There is suggestion of offset of the lateral left fifth rib, probably present previously. There may also be a more recent sixth rib fracture. IMPRESSION: No acute cardiopulmonary disease disease. Possible recent left sixth rib fracture. Electronically signed by: Gustavo Huntley Jr., MD (05/03/2020 3:33 PM) [id number] Course & Med Decision Making Course & Med Decision Making Vital signs stable, comprehensive history and physical exam non-concerning for any emergent pathology Pertinent labs and imaging studies ordered and reviewed IV fluid rehydration initiated, IV anti-emetics administered while in ED Nonetheless, in the middle of ED work-up, patient vocalized to RN that she wanted to leave AMA Attempts were made to have patient stay to see out entirety of medical work-up for her presenting symptoms; however, patient declined and was persistent about leaving Risk and benefits of leaving prior to completion of comprehensive medical work- up and further medical intervention discussed with good understanding by patient Ultimately, patient with full capacity signed AMA form and departed from ER Patient was advised to follow-up with her PCP in outpatient setting this upcoming week to ensure symptomatic resolution Dragon Disclaimer Dragon Disclaimer This electronic medical record was generated, in whole or in part, using a voice recognition dictation system. Departure Departure: Impression: Primary Impression: Left against medical advice Additional Impressions: Nausea & vomiting Diarrhea Disposition: 07 AGAINST MEDICAL ADVICE (Patient signed AMA performed prior to ED departure) Condition: STABLE Referrals: YANIRA GUTIERREZ MD (PCP) Justification of Admission: Justification of Admission: Justification of Admission Dx: N/A Problem Qualifiers AVAAVA May 03, 2020 15:05
[2020-05-03] MEDS ORDERED: PROCHLORPERAZINE 10 MG/2 ML VIAL. ONE (15:06)
--- NOTE | 2020-05-03 15:36 | RAD ---
AP portable chest 05/03/2020. Reason for exam: Nausea and vomiting. Comparison is made with a study of 02/14/2019. No new infiltrate or effusion is seen. Heart size and pulmonary vascularity appear normal. There is suggestion of offset of the lateral left fifth rib, probably present previously. There may also be a more recent sixth rib fracture. IMPRESSION: No acute cardiopulmonary disease disease. Possible recent left sixth rib fracture. Electronically signed by: Gustavo Huntley Jr., MD (05/03/2020 3:33 PM) [id number]
[2020-05-03 15:38] LABS: BASO % 0 % (0-3); EOS % 0 % (0-3); HEMOGLOBIN 17.2 g/dL (12.0-15.5); LYMPH % 14 % (24-48); MEAN CORPUSCULAR HEMOGLOBIN 31 pg (25-35); MEAN CORPUSCULAR HGB CONC 34 g/dL (31-37); MEAN CORPUSCULAR VOLUME 91 fL (79-100); MONO # 0.5 x10^3/uL (0.0-1.1); MONO % 7 % (0-9); NEUT # 5.6 x10^3uL (1.8-7.7); NEUT % 79 % (31-73); PLATELET COUNT 310 x10^3/uL (140-400); RED BLOOD COUNT 5.61 x10^6/uL (3.50-5.40); RED CELL DISTRIBUTION WIDTH 17.1 % (11.5-14.5); WHITE BLOOD COUNT 7.1 x10^3/uL (4.0-11.0)
[2020-05-03 15:44] LABS: CALCIUM 10.1 mg/dL (8.5-10.1); GFR 54.5; POTASSIUM 4.2 mmol/L (3.5-5.1)
[2020-05-03 15:49] LABS: ALBUMIN 4.1 g/dL (3.4-5.0); TOTAL BILIRUBIN 0.5 mg/dL (0.2-1.0); TOTAL PROTEIN 8.1 g/dL (6.4-8.2)
--- NOTE | 2020-05-04 14:01 | EKG ---
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
== END 2020-05-03 16:01 | disposition left against medical advice (07) ==
LOC: ER 14:27
DX: R11.2 Nausea with vomiting, unspecified (principal); R19.7 Diarrhea, unspecified; K21.9 Gastro-esophageal reflux disease without esophagitis; E78.00 Pure hypercholesterolemia, unspecified; I10 Essential (primary) hypertension; F17.210 Nicotine dependence, cigarettes, uncomplicated; Z90.89 Acquired absence of other organs; Z90.49 Acquired absence of other specified parts of digestive tract; Z90.710 Acquired absence of both cervix and uterus; Z88.8 Allergy status to other drugs, medicaments and biological substances
CPT/HCPCS: 36415; 71045; 80053; 83605; 83690; 84484; 85025; 87040; 93005; 96361; 96374; 99285; J0780; J7030

== ENCOUNTER 2020-07-26 13:54 | Emergency (ER) | payer MEDICARE ==
[~2020-07-26] VITALS: Ht 167.6 cm; Wt 51.3 kg
[2020-07-26 14:21] VITALS: BP 140/84
[2020-07-26 14:31] LABS: CALCIUM 10.2 mg/dL (8.5-10.1); CREATININE 1.1 mg/dL (0.6-1.0); GFR 48.8; POTASSIUM 4.2 mmol/L (3.5-5.1)
[2020-07-26 14:36] LABS: BASO % 0 % (0-3); EOS # 0.1 x10^3/uL (0.0-0.7); EOS % 1 % (0-3); HEMATOCRIT 42.5 % (36.0-47.0); HEMOGLOBIN 13.6 g/dL (12.0-15.5); LYMPH # 2.2 x10^3/uL (1.0-4.8); LYMPH % 29 % (24-48); MEAN CORPUSCULAR HEMOGLOBIN 31 pg (25-35); MEAN CORPUSCULAR HGB CONC 32 g/dL (31-37); MEAN CORPUSCULAR VOLUME 96 fL (79-100); MONO # 0.6 x10^3/uL (0.0-1.1); MONO % 8 % (0-9); NEUT # 4.7 x10^3uL (1.8-7.7); NEUT % 62 % (31-73); PLATELET COUNT 220 x10^3/uL (140-400); RED BLOOD COUNT 4.44 x10^6/uL (3.50-5.40); WHITE BLOOD COUNT 7.6 x10^3/uL (4.0-11.0)
[2020-07-26 14:37] LABS: ALBUMIN/GLOBULIN RATIO 0.9 (1.0-1.7); TOTAL BILIRUBIN 0.3 mg/dL (0.2-1.0); TOTAL PROTEIN 6.3 g/dL (6.4-8.2)
[2020-07-26 14:41] LABS: BARBITURATES NEG (NEG); BENZODIAZEPINES POS (NEG); CANNABINOIDS POS (NEG); COCAINE NEG (NEG); METHADONE NEG (NEG); OPIATES POS (NEG); PHENCYCLIDINE NEG (NEG)
[2020-07-26 14:43] LABS: BILIRUBIN,URINE NEG (NEG); CLARITY,URINE CLEAR; COLOR,URINE YELLOW; GLUCOSE,URINE NEG (NEG); NITRITE,URINE NEG (NEG)
[2020-07-26 14:44] LABS: BACTERIA,URINE 0 /HPF (0-FEW); RBC,URINE 0 /HPF (0-2); WBC,URINE RARE /HPF (0-4)
[2020-07-26 14:45] LABS: AMPHETAMINE/METHAMPHETAMINE NEG (NEG)
--- NOTE | 2020-07-26 15:05 | PHYS DOC ---
Past History Past Medical History: COPD, GERD, High Cholesterol, Hypertension Past Surgical History: Appendectomy, Cholecystectomy, Hysterectomy Smoking: Cigarettes Alcohol Use: None Drug Use: None Adult General Chief Complaint Chief Complaint: ALTERED MENTAL STATUS [facility] HPI Patient is a 74-year-old female who presents via EMS for altered mental status. Report from EMS providers state that who lives with patient was concerned about altered mentation of patient that started earlier in the day. No known precipitating factors or illnesses, patient has not been febrile or voiced any concerning complaints. Similar episodes have happened in the past due to polypharmacy reasons, patient is on numerous high risk medication such as opioid and benzodiazepine medications, concerned she might have acciden tally taken too many today On arrival to our facility, patient is alert, oriented to person place and time. She has no complaints besides ongoing chronic neck pain. Denies any COVID-19 contact or symptoms, chest pain, shortness of breath, abdominal pain, nausea vomit diarrhea, changes in bladder or bowel function Review of Systems Review of Systems Fourteen body systems of review of systems have been reviewed. See HPI for pertinent positives and negative responses, other holloway all other systems are negative, non-pertinent or non-contributory Allergies Allergies Allergies Coded Allergies Type Severity Reaction Last Updated Verified paroxetine HCl Allergy Mild Diarrhea 12/16/18 Yes Physical Exam Physical Exam Constitutional: Pt is oriented to person, place, and time. Pt appears well- developed and well-nourished. HENT: Head: Normocephalic and atraumatic. Mouth/Throat: Oropharynx is clear and moist. No hematomas or lacerations or abrasions to face or scalp OP clear, no blood, no malocclusion, dentition intact Nares clear, no nasal septal hematoma External ears unremarkable, no angulo sign Midface stable Eyes: Conjunctivae and EOM are normal. Pupils are equal, round, and reactive to light. Neck: C-spine midline nontender, no step-offs Cardiovascular: Normal rate, regular rhythm and normal heart sounds. Pulmonary/Chest: Effort normal and breath sounds normal. No respiratory distress. No wheezes. CTA bilaterally Abdominal: Soft. Bowel sounds are normal. Pt exhibits no distension. There is no tenderness. Musculoskeletal: No bony tenderness to extremities, no deformities, full ROM extremities Chest wall stable Pelvis stable and non-tender No vertebral TTP and spine without stepoffs Neurological: Pt is alert and oriented to person, place, and time. Moving all extremities willfully, able to wiggle all fingers and toes Alert and oriented x 3 Sensation grossly intact Skin: Skin is warm and dry. No abrasions, no lacerations Psychiatric: Behavior is appropriate for situation Nursing note and vitals reviewed. Current Patient Data Vital Signs Vital Signs Date Time Temp Pulse Resp B/P (MAP) Pulse Ox O2 Delivery O2 Flow Rate FiO2 07/26/20 14:21 98.2 82 18 140/84 (102) 98 Nasal Cannula 3.0 Lab Results Laboratory Tests Test 07/26/20 14:05 07/26/20 14:14 White Blood Count 7.6 x10^3/uL (4.0-11.0) Red Blood Count 4.44 x10^6/uL (3.50-5.40) Hemoglobin 13.6 g/dL (12.0-15.5) Hematocrit 42.5 % (36.0-47.0) Mean Corpuscular Volume 96 fL (79-100) Mean Corpuscular Hemoglobin 31 pg (25-35) Mean Corpuscular Hemoglobin Concent 32 g/dL (31-37) Red Cell Distribution Width 17.0 % (11.5-14.5) H Platelet Count 220 x10^3/uL (140-400) Neutrophils (%) (Auto) 62 % (31-73) Lymphocytes (%) (Auto) 29 % (24-48) Monocytes (%) (Auto) 8 % (0-9) Eosinophils (%) (Auto) 1 % (0-3) Basophils (%) (Auto) 0 % (0-3) Neutrophils # (Auto) 4.7 x10^3uL (1.8-7.7) Lymphocytes # (Auto) 2.2 x10^3/uL (1.0-4.8) Monocytes # (Auto) 0.6 x10^3/uL (0.0-1.1) Eosinophils # (Auto) 0.1 x10^3/uL (0.0-0.7) Basophils # (Auto) 0.0 x10^3/uL (0.0-0.2) Sodium Level 139 mmol/L (136-145) Potassium Level 4.2 mmol/L (3.5-5.1) Chloride Level 103 mmol/L (98-107) Carbon Dioxide Level 30 mmol/L (21-32) Anion Gap 6 (6-14) Blood Urea Nitrogen 13 mg/dL (7-20) Creatinine 1.1 mg/dL (0.6-1.0) H Estimated GFR (Cockcroft-Gault) 48.8 BUN/Creatinine Ratio 12 (6-20) Glucose Level 93 mg/dL (70-99) Calcium Level 10.2 mg/dL (8.5-10.1) H Total Bilirubin 0.3 mg/dL (0.2-1.0) Aspartate Amino Transferase (AST) 9 U/L (15-37) L Alanine Aminotransferase (ALT) 10 U/L (14-59) L Alkaline Phosphatase 82 U/L (46-116) Total Protein 6.3 g/dL (6.4-8.2) L Albumin 3.0 g/dL (3.4-5.0) L Albumin/Globulin Ratio 0.9 (1.0-1.7) L Urine Collection Type U cath Urine Color Yellow Urine Clarity Clear Urine pH 6.0 Urine Specific [place] 1.025 Urine Protein Neg (NEG-TRACE) Urine Glucose (UA) Neg mg/dL (NEG) Urine Ketones (Stick) Neg mg/dL (NEG) Urine Blood Neg (NEG) Urine Nitrite Neg (NEG) Urine Bilirubin Neg (NEG) Urine Urobilinogen Dipstick 1.0 mg/dL (0.2 mg/dL) Urine Leukocyte Esterase Neg (NEG) Urine RBC 0 /HPF (0-2) Urine WBC Rare /HPF (0-4) Urine Squamous Epithelial Cells None /LPF Urine Bacteria 0 /HPF (0-FEW) Urine Opiates Screen Pos (NEG) Urine Methadone Screen Neg (NEG) Urine Barbiturates Neg (NEG) Urine Phencyclidine Screen Neg (NEG) Urine Amphetamine/Methamphetamine Neg (NEG) Urine Benzodiazepines Screen Pos (NEG) Urine Cocaine Screen Neg (NEG) Urine Cannabinoids Screen Pos (NEG) Urine Ethyl Alcohol Neg (NEG) EKG EKG EKG ordered and interpreted by myself at 1535 hrs. as sinus rhythm at 63 bpm, unremarkable intervals, no axis deviation, no ischemic findings, no STEMI Radiology/Procedures Radiology/Procedures PROCEDURE: CHEST AP ONLY Examination: CHEST AP ONLY History: Reason: delirium, dec mentation / Comparison: 05/03/2020. Findings: AP portable upright frontal view of the chest was obtained. The cardiomediastinal silhouette is normal. Lungs are clear although subtle diffuse interstitial thickening is suggested similar to previous. No focal infiltrate.. There is no pneumothorax. No pleural effusion is appreciated. No acute bone abnormality. Old left fifth rib fracture is present. IMPRESSION: No acute cardiopulmonary process. Electronically signed by: Oh Jimenez MD (07/26/2020 3:41 PM) [id number] Heart Score HEART Score for Chest Pain: HEART Score for Chest Pain Response (Comments) Value History Slighlty/Non-Suspicious 0 ECG Normal 0 Age > 65 2 Risk Factors >3 Risk Factors or Hx CAD 2 Troponin < Normal Limit 0 Total 4 Risk Factors: Risk Factors: DM, Current or recent (<one month) smoker, HTN, HLP, family history of CAD, obesity. Risk Scores: Risk Factors: DM, Current or recent (<one month) smoker, HTN, HLP, family history of CAD, obesity. Course & Med Decision Making Course & Med Decision Making Pertinent Labs and Imaging studies reviewed. (See chart for details) Patient observed in ER for +2 hours without any concerning findings or change in mentation I discussed reasons for patient arriving today and she was aware, states she might have taken x1 additional hydrocodone on accident, something she does frequently as she is "forgetful" Case discussed at length and CT head was offered but joint decision to defer given patient being at baseline mentation and well-appearing, I feel the risk of radiation outweighs the benefit of the examination At this time, patient is well-appearing, hemodynamically stable, without any major complaints and/or concerning findings on physical exam. I feel she is stable for discharge home with close PCP follow-up I advised patient to discuss need for home health and/or medication reconciliation as she is at high risk for adverse effects from polypharmacy, she understood this well and has been using a pill pack at home to keep her m edications organized I did disclose this might be an acute presentation more concerning pathology and as such, if any other concerns arise she should represent to our ER for repeat evaluation Strict return precautions were discussed with good understanding by patient, all questions and concerns addressed prior to ER departure in stable condition Willi Disclaimer Dragon Disclaimer This electronic medical record was generated, in whole or in part, using a voice recognition dictation system. Departure Departure: Impression: Primary Impression: Delirium, drug-induced Disposition: 01 DC HOME SELF CARE/HOMELESS Condition: STABLE Referrals: YANIRA GUTIERREZ MD (PCP) Patient Instructions: Opiate Dependence, Prescription Medications, Signs of Dependency Additional Instructions: As discussed prior to ER departure, please call your PCP first thing Tuesday morning to schedule outpatient follow-up in upcoming 2 to 10 days I feel like episode today was likely due to medication misuse. Please talk to your physician about potentially changing your medication regiment and/or consider need for home health or other ways to obtain pill pack versus other full proof measures to ensure you take your medications as scheduled consistently If any concerning signs or symptoms were present prior to ER departure please do not hesitate to come back for repeat evaluation It was a pleasure to take care of you and I wish you a speedy recovery! AVA ESCALANTE DO Jul 26, 2020 15:05
--- NOTE | 2020-07-26 15:44 | RAD ---
Examination: CHEST AP ONLY History: Reason: delirium, dec mentation / Comparison: 05/03/2020. Findings: AP portable upright frontal view of the chest was obtained. The cardiomediastinal silhouette is normal. Lungs are clear although subtle diffuse interstitial thickening is suggested similar to previous. No focal infiltrate.. There is no pneumothorax. No pleural effusion is appreciated. No acute bone abnormality. Old left fifth rib fracture is present. IMPRESSION: No acute cardiopulmonary process. Electronically signed by: Oh Jimenez MD (07/26/2020 3:41 PM) [id number]
--- NOTE | 2020-07-26 18:21 | EKG ---
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
== END 2020-07-26 16:18 | disposition home or self-care (01) ==
LOC: ER 13:54
DX: R41.0 Disorientation, unspecified (principal); J44.9 Chronic obstructive pulmonary disease, unspecified; K21.9 Gastro-esophageal reflux disease without esophagitis; E78.00 Pure hypercholesterolemia, unspecified; I10 Essential (primary) hypertension; F17.210 Nicotine dependence, cigarettes, uncomplicated; Z90.49 Acquired absence of other specified parts of digestive tract; Z90.89 Acquired absence of other organs; Z90.710 Acquired absence of both cervix and uterus; Z88.8 Allergy status to other drugs, medicaments and biological substances
CPT/HCPCS: 36415; 71045; 80053; 80307; 81001; 85025; 93005; 99285

== ENCOUNTER 2020-09-25 19:41 | Emergency (ER) | payer MEDICARE ==
[~2020-09-25] VITALS: Ht 167.6 cm; Wt 51.3 kg
[2020-09-25] MEDS ORDERED: IV RINGERS SOLUTION,LACTATED 1,000 ML IV SCH (20:00)
--- NOTE | 2020-09-25 20:16 | PHYS DOC ---
Past History Past Medical History: Arthritis, CHF, COPD, Fibromyalgia, GERD, High Cholesterol, Hypertension, TIA Past Surgical History: Appendectomy, Cholecystectomy, Hysterectomy Smoking: Cigarettes Alcohol Use: None Drug Use: None General Adult EDM: Chief Complaint: ALTERED MENTAL STATUS HPI: HPI: " I don't know.. I just woke up... confused.. that why I am here...".." guess..but I don't want to be here..I want you to let me go home..." " We were eating Pizza.. and she fell asleep.. but she woke up really confused...flapping and waving her arms around... not making sense... speech seemed off... she been lot more forgetful the past couple weeks..she been more confused lately... " ( Boy friend) Patient is a 74 year old female who presents with above hx and complaints of confusion and altered mental status after awakening just prior to arrival. Was at " more normal".. at 1800 hrs while eating Pizza per boyfriend.. Past medical history of hypertension, chronic pain, arthritis, CHF, tobacco abuse, and fibromyalgia. The patient normally follows with Dr. Gutierrez.. Daughter [phone] knows little about her medical history. Patient denies any change in her meds. Patient does take meds for chronic pain. Patient insisting on discharge almost immediately after brought back to room 7. Patient did agrees to stay long enough to complete CT of head. Review of Systems: Review of Systems: Constitutional: Denies fever or chills Eyes: Denies change in visual acuity HENT: Denies nasal congestion or sore throat Respiratory: Denies cough or shortness of breath Cardiovascular: Denies chest pain or edema GI: Denies abdominal pain, nausea, vomiting, bloody stools or diarrhea : Denies dysuria Musculoskeletal: History of chronic back pain and joint pain Integument: Denies rash Neurologic: Denies headache, focal weakness or sensory changes . Complaints of confusion upon awaking from sleep. Endocrine: Denies polyuria or polydipsia Lymphatic: Denies swollen glands Psychiatric: History of anxiety Family History: Family History: Noncontributory to presentation Current Medications: Current Meds: Current Medications Medications (Trade) Dose Ordered Sig/Sue Start Time Stop Time Status Last Admin Dose Admin Lactated Ringer's 1,000 ml @ 100 mls/hr Q10H 09/25/20 20:00 09/26/20 05:59 Allergies: Allergies: Allergies Coded Allergies Type Severity Reaction Last Updated Verified paroxetine HCl Allergy Mild Diarrhea 12/16/18 Yes Physical Exam: PE: Constitutional: no acute distress, some confusion in appearance. Slow to answer questions HENT: Normocephalic, atraumatic, bilateral external ears normal, oropharynx moist, no oral exudates, nose normal. [] Eyes: PERRLA, EOMI, conjunctiva normal, no discharge. [] Neck: Normal range of motion, no tenderness, supple, no stridor. No bruits appreciated Cardiovascular:Heart rate regular rhythm, no murmur [PMI to the left Lungs & Thorax: Bilateral breath sounds equal apex with scattered wheezes throughout auscultation [] Abdomen: Bowel sounds normal, soft, no tenderness, no masses, no pulsatile masses. Multiple surgery scars Skin: Warm, dry, no erythema, no rash. Poor turgor Back: No tenderness, no CVA tenderness. [] Extremities: No tenderness, no cyanosis, no clubbing, ROM intact, no edema. 3 changes. No cording appreciated Neurologic: Alert and oriented X 3, but slow to answer questions, moves all extremities on request, has distal sensory, no focal deficits noted. [] Psychologic: Affect anxious, slow to process questions mood normal. [] EKG: EKG: My interpretation EKG shows a sinus rhythm at 77 bpm. Slightly prolonged QT interval at 454 ms and a QTC at 516 ms. [] Radiology/Procedures: Radiology/Procedures: [address] [address] IMAGING REPORT Signed PATIENT: JESSE YOUNG ACCOUNT: [id number] : 1945 LOCATION: ER AGE: 74 SEX: F EXAM STATUS: PRE ER ORD. PHYSICIAN: RADHA VILLAGOMEZ MD REASON: Acute altered mental status-code stroke? PROCEDURE: CT CODE STROKE HEAD WO STUDY: CT head without contrast INDICATION: Code stroke. COMPARISON: 07/08/2019 TECHNIQUE: Axial CT imaging through the head without the use of intravenous contrast. Sagittal and coronal reformats were obtained. One or more of the following individualized dose reduction techniques were utilized for this examination: 1. Automated exposure control 2. Adjustment of the mA and/or kV according to patient size 3. Use of iterative reconstruction technique. FINDINGS: No acute intracranial hemorrhage. No newly identified carter-white matter differentiation loss. No mass effect, midline shift or hydrocephalus. Unchanged brain parenchymal attenuation pattern. Intracranial calcific atherosclerosis. Unchanged orbits, scalp and calvarium. IMPRESSION: No acute intracranial hemorrhage or CT evidence for an acute cortical infarcti on. FOR INTERNAL CODING PURPOSES Critical result: Findings discussed with Dr. Villagomez on 09/25/2020 at 8:10 PM. RESULT CODE: (C) Electronically signed by: HEIKE WILLOUGHBY MD (09/25/2020 8:14 PM) [facility] [][address] [place] [id number] [place] [address] IMAGING REPORT Signed PATIENT: JESSE YOUNG ACCOUNT: [id number] : 1945 LOCATION: ER AGE: 74 SEX: F EXAM STATUS: PRE ER ORD. PHYSICIAN: RADHA VILLAGOMEZ MD REASON: hypoxia, Alt. mentatl PROCEDURE: PORTABLE CHEST 1V AP chest. HISTORY: Hypoxia altered mental status AP view was taken of the chest. There is no pneumothorax or pleural effusion. The heart is normal in size. There is no acute infiltrate. Pattern is unchanged compared to the prior study from July. IMPRESSION: 1. No acute infiltrates. Electronically signed by: Pepe Anthony MD (09/25/2020 8:26 PM) [facility] DICTATED AND SIGNED BY: PEPE ANTHONY MD DATE: 09/25/202024 CC: RADHA VILLAGOMEZ MD; YANIRA GUTIERREZ MD ~MTH0 0 IMAGING REPORT Signed PATIENT: JESSE YOUNG ACCOUNT: [id number] : 1945 LOCATION: ER AGE: 74 SEX: F EXAM STATUS: PRE ER ORD. PHYSICIAN: RADHA VILLAGOMEZ MD REASON: ALTERED MENTAL STATUS, NECK PAIN PROCEDURE: CT CERVICAL SPINE WO CONTRAST CT cervical spine without contrast. HISTORY: Neck pain, altered mental status. Axial CT images were obtained to the cervical spine. Sagittal and coronal reconstructed images were reviewed. There is facet arthritis at multiple levels. There is no acute fracture. There is no acute fracture. There is disc space narrowing at C5-6 and C6-7. There is mild subluxation at C4-5. IMPRESSION: 1. Degenerative changes noted in the cervical spine. 2. No acute C-spine fracture. PQRS Compliance Statement: One or more of the following individualized dose reduction techniques were utilized for this examination: 1. Automated exposure control 2. Adjustment of the mA and/or kV according to patient size 3. Use of iterative reconstruction technique Electronically signed by: Pepe Anthony MD (09/25/2020 8:30 PM) [facility] DICTATED AND SIGNED BY: PEPE ANTHONY MD DATE: 09/25/202027 CC: RADHA VILLAGOMEZ MD; YANIRA GUTIERREZ MD ~MTH0 0 0 Heart Score: HEART Score for Chest Pain: HEART Score for Chest Pain Response (Comments) Value History Slighlty/Non-Suspicious 0 ECG Nonspecific Repolarizatio 1 Age > 65 2 Risk Factors 1 or 2 Risk Factors 1 Troponin < Normal Limit 0 Total 4 Risk Factors: Risk Factors: DM, Current or recent (<one month) smoker, HTN, HLP, family history of CAD, obesity. Risk Scores: Score 0 - 3: 2.5% MACE over next 6 weeks - Discharge Home Score 4 - 6: 20.3% MACE over next 6 weeks - Admit for Clinical Observation Score 7 - 10: 72.7% MACE over next 6 weeks - Early Invasive Strategies Course & Med Decision Making: Course & Med Decision Making Pertinent Labs and Imaging studies reviewed. (See chart for details) Pt. continues to demand discharge. 2200hrs. patient encouraged to push fluids juices. Patient take her meds as previous directed. Patient follow-up with Dr. Gutierrez. Patient return anytime if she elected to complete her work-up. Patient refusing any meds at discharge. Patient discharged to the care of her significant other and he was advised to return at any time if she wished to complete her work-up. Patient was warned her CO level was 10.9 which is elevated, even for a smoker. Patient encouraged to have her home check for combustible ventilation dysfunction. Patient begged to stay and complete her evaluation and allow supplemental of her potassium and observation. Patient emphatically refused. Patient advised she could return at any time. Impression: 1.Mental Alternation- Mental Status Change 2.Hypokalemia 3.0 3. Hypomagnesium 1.2 4.CHF diastolic dysfunction-BNP 5, 455 5.Elevated D-dimer 1.48 [] Dragon Disclaimer: Dragon Disclaimer: This electronic medical record was generated, in whole or in part, using a voice recognition dictation system. Departure Departure: Referrals: YANIRA GUTIERREZ MD (PCP) Dragon Disclaimer This chart was dictated in whole or in part using Voice Recognition software in a busy, high-work load, and often noisy Emergency Department environment. It may contain unintended and wholly unrecognized errors or omissions. Dragon Disclaimer This chart was dictated in whole or in part using Voice Recognition software in a busy, high-work load, and often noisy Emergency Department environment. It may contain unintended and wholly unrecognized errors or omissions. RADHA VILLAGOMEZ MD Sep 25, 2020 20:16
--- NOTE | 2020-09-25 20:17 | RAD ---
STUDY: CT head without contrast INDICATION: Code stroke. COMPARISON: 07/08/2019 TECHNIQUE: Axial CT imaging through the head without the use of intravenous contrast. Sagittal and co radames reformats were obtained. One or more of the following individualized dose reduction techniques were utilized for this examinat ion: 1. Automated exposure control 2. Adjustment of the mA and/or kV according to patient size 3. Use of iterative reconstruction technique. FINDINGS: No acute intracranial hemorrhage. No newly identified carter-white matter differentiation loss. No mass effect, midline shift or hydrocephalus. Unchanged brain parenchymal attenuation pattern. Intracranial calcific atherosclerosis. Unchanged orbits, scalp and calvarium. IMPRESSION: No acute intracranial hemorrhage or CT evidence for an acute cortical infarction. FOR INTERNAL CODING PURPOSES Critical result: Findings discussed with Dr. Villagomez on 09/25/2020 at 8:10 PM. RESULT CODE: (C) Electronically signed by: HEIKE WILLOUGHBY MD (09/25/2020 8:14 PM) [facility]
--- NOTE | 2020-09-25 20:29 | RAD ---
AP chest. HISTORY: Hypoxia altered mental status AP view was taken of the chest. There is no pneumothorax or pleural effusion. The heart is normal in size. There is no acute infiltrate. Pattern is unchanged compared to the prior study from July. IMPRESSION: 1. No acute infiltrates. Electronically signed by: Pepe Anthony MD (09/25/2020 8:26 PM) [facility]
[2020-09-25] MEDS ORDERED: ASPIRIN RECTAL 300 MG SUPP. PR ONE (20:30)
--- NOTE | 2020-09-25 20:33 | RAD ---
CT cervical spine without contrast. HISTORY: Neck pain, altered mental status. Axial CT images were obtained to the cervical spine. Sagittal and coronal reconstructed images were r eviewed. There is facet arthritis at multiple levels. There is no acute fracture. There is no acute f racture. There is disc space narrowing at C5-6 and C6-7. There is mild subluxation at C4-5. IMPRESSION: 1. Degenerative changes noted in the cervical spine. 2. No acute C-spine fracture. PQRS Compliance Statement: One or more of the following individualized dose reduction techniques were utilized for this examinat ion: 1. Automated exposure control 2. Adjustment of the mA and/or kV according to patient size 3. Use of iterative reconstruction technique Electronically signed by: Pepe Anthony MD (09/25/2020 8:30 PM) [facility]
[2020-09-25 21:26] LABS: BASO % 1 % (0-3); EOS # 0.1 x10^3/uL (0.0-0.7); EOS % 1 % (0-3); HEMATOCRIT 44.2 % (36.0-47.0); HEMOGLOBIN 14.1 g/dL (12.0-15.5); LYMPH # 2.4 x10^3/uL (1.0-4.8); LYMPH % 38 % (24-48); MEAN CORPUSCULAR HEMOGLOBIN 29 pg (25-35); MEAN CORPUSCULAR HGB CONC 32 g/dL (31-37); MEAN CORPUSCULAR VOLUME 92 fL (79-100); MONO # 0.6 x10^3/uL (0.0-1.1); MONO % 9 % (0-9); NEUT # 3.3 x10^3uL (1.8-7.7); NEUT % 52 % (31-73); PLATELET COUNT 283 x10^3/uL (140-400); RED BLOOD COUNT 4.81 x10^6/uL (3.50-5.40); RED CELL DISTRIBUTION WIDTH 16.3 % (11.5-14.5); WHITE BLOOD COUNT 6.4 x10^3/uL (4.0-11.0)
--- NOTE | 2020-09-25 21:39 | EKG ---
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
[2020-09-25 21:46] LABS: CALCIUM 9.1 mg/dL (8.5-10.1); CREATININE 0.7 mg/dL (0.6-1.0); DIRECT BILIRUBIN 0.2 mg/dL (0.0-0.2); GFR 82.3; MAGNESIUM 1.2 mg/dL (1.8-2.4); TOTAL BILIRUBIN 0.3 mg/dL (0.2-1.0); TOTAL PROTEIN 6.2 g/dL (6.4-8.2)
[2020-09-25 22:07] LABS: BGAS PH 7.53 (7.35-7.45)
[2020-09-25] MEDS ORDERED: MAGNESIUM HYDROXIDE 2,400 MG/30 ML ORAL.SUSP. PO ONE (22:15)
[2020-09-25] MEDS ORDERED: POTASSIUM CHLORIDE 20 MEQ TABLET.ER. PO ONE (22:15)
[2020-09-25] MEDS ORDERED: FUROSEMIDE 40 MG/4 ML VIAL IVP ONE (22:15)
[2020-09-25 23:04] VITALS: BP 131/88
== END 2020-09-25 23:04 | disposition home or self-care (01) ==
LOC: ER 19:41
DX: R41.82 Altered mental status, unspecified (principal); E87.6 Hypokalemia; E83.42 Hypomagnesemia; I50.30 Unspecified diastolic (congestive) heart failure; R79.89 Other specified abnormal findings of blood chemistry; M19.90 Unspecified osteoarthritis, unspecified site; J44.9 Chronic obstructive pulmonary disease, unspecified; M79.7 Fibromyalgia; K21.9 Gastro-esophageal reflux disease without esophagitis; I11.0 Hypertensive heart disease with heart failure; I50.9 Heart failure, unspecified; I25.2 Old myocardial infarction; E78.00 Pure hypercholesterolemia, unspecified; F17.210 Nicotine dependence, cigarettes, uncomplicated; Z90.710 Acquired absence of both cervix and uterus; Z90.89 Acquired absence of other organs; Z90.49 Acquired absence of other specified parts of digestive tract; Z88.8 Allergy status to other drugs, medicaments and biological substances
CPT/HCPCS: 36415; 70450; 71045; 72125; 80048; 80076; 82375; 82550; 82803; 83690; 83735; 83880; 84443; 84484; 85025; 85379; 85610; 85730; 93005; 99285

== ENCOUNTER 2021-06-20 10:00 | Observation (INO) | payer MEDICARE ==
[~2021-06-20] VITALS: Ht 167.6 cm; Wt 45.1 kg
[~2021-06-20 10:00] MED LIST changes: -LISI-334 PO; +LISI20TA18 PO; -LISI40TA PO; +LISI40TA6 PO
[2021-06-20 10:10] VITALS: BP 131/88
--- NOTE | 2021-06-20 10:20 | PHYS DOC ---
Past History Past Medical History: Arthritis, CHF, COPD, Fibromyalgia, GERD, High Cholesterol, Hypertension, TIA (FATIMAH VENEGAS APRN) Past Surgical History: Appendectomy, Cholecystectomy, Hysterectomy (FATIMAH VENEGAS APRN) Smoking: Cigarettes Alcohol Use: None Drug Use: None (FATIMAH VENEGAS APRN) General Adult EDM: Chief Complaint: SHORTNESS OF BREATH HPI: HPI: Patient is a 75-year-old female with a history of COPD who presents to the ER for 3-day history of shortness of breath. Patient primary care provider is Dr. Garcia. She states that they have been contemplating placing her on home oxygen but they have not yet. Patient is a current smoker. Patient states that she has had an increased cough. She denies fever, chest pain, sick exposures. Patient also has a history of hypertension, hyperlipidemia and GERD. On room air, patient's oxygen saturation was 87%. Patient placed on 2 L via nasal cannula. (FATIMAH VENEGAS APRN) Review of Systems: Review of Systems: 14 body systems of the review of systems have been reviewed. See HPI for pertinent positive and negative responses, otherwise all other systems are negative, nonpertinent or noncontributory (FATIMAH VENEGAS APRN) Allergies: Allergies: Allergies Coded Allergies Type Severity Reaction Last Updated Verified paroxetine HCl Allergy Mild Diarrhea 12/16/18 Yes (FATIMAH VENEGAS APRN) Physical Exam: PE: Constitutional: Well developed, well nourished, no acute distress, non-toxic appearance. [] HENT: Normocephalic, atraumatic, bilateral external ears normal, oropharynx moist, no oral exudates, nose normal. [] Eyes: PERRLA, EOMI, conjunctiva normal, no discharge. [] Neck: Normal range of motion, no stridor Cardiovascular:Heart rate tachycardia rhythm, no murmur [] Lungs & Thorax: Wheezing noted throughout Abdomen: Bowel sounds normal, soft, no tenderness, no masses, no pulsatile masses. [] Skin: Warm, dry, no erythema, no rash. [] Back: Normal range of motion Extremities: No tenderness, no cyanosis, no clubbing, ROM intact, no edema. [] Neurologic: Alert and oriented X 3, normal motor function, normal sensory function, no focal deficits noted. [] Psychologic: Affect normal, judgement normal, mood normal. [] (FATIMAH VENEGAS APRN) Current Patient Data: Labs: Laboratory Tests Test 06/20/21 10:20 06/20/21 11:25 White Blood Count 10.0 x10^3/uL Red Blood Count 5.41 x10^6/uL Hemoglobin 16.6 g/dL Hematocrit 49.9 % Mean Corpuscular Volume 92 fL Mean Corpuscular Hemoglobin 31 pg Mean Corpuscular Hemoglobin Concent 33 g/dL Red Cell Distribution Width 16.8 % Platelet Count 288 x10^3/uL Neutrophils (%) (Auto) 85 % Lymphocytes (%) (Auto) 8 % Monocytes (%) (Auto) 6 % Eosinophils (%) (Auto) 0 % Basophils (%) (Auto) 0 % Neutrophils # (Auto) 8.5 x10^3uL Lymphocytes # (Auto) 0.8 x10^3/uL Monocytes # (Auto) 0.6 x10^3/uL Eosinophils # (Auto) 0.0 x10^3/uL Basophils # (Auto) 0.0 x10^3/uL Sodium Level 140 mmol/L Potassium Level 3.2 mmol/L Chloride Level 101 mmol/L Carbon Dioxide Level 29 mmol/L Anion Gap 10 Blood Urea Nitrogen 9 mg/dL Creatinine 0.6 mg/dL Estimated GFR (Cockcroft-Gault) 98.0 BUN/Creatinine Ratio 15 Glucose Level 143 mg/dL Calcium Level 9.4 mg/dL Total Bilirubin 0.7 mg/dL Aspartate Amino Transf (AST/SGOT) 16 U/L Alanine Aminotransferase (ALT/SGPT) 13 U/L Alkaline Phosphatase 89 U/L Troponin I Quantitative < 0.017 ng/mL Total Protein 6.9 g/dL Albumin 3.4 g/dL Albumin/Globulin Ratio 1.0 Current Medications Medications (Trade) Dose Ordered Sig/Sue Route PRN Reason Start Time Stop Time Status Last Admin Dose Admin Methylprednisolone Sodium Succinate (SOLU-Medrol 125MG VIAL) 125 mg 1X ONCE IV 06/20/21 10:30 06/20/21 10:31 DC 06/20/21 10:33 Albuterol/ Ipratropium (Duoneb) 3 ml 1X ONCE NEB 06/20/21 10:30 06/20/21 10:31 DC 06/20/21 10:33 (FATIMAH VENEGAS APRN) EKG: EKG: [] EKG performed by ER staff at 1008 shows sinus tachycardia with a rate of 113, no STEMI read by Dr. Escalante at 1015. (FATIMAH VENEGAS APRN) Radiology/Procedures: Radiology/Procedures: PROCEDURE: CHEST AP ONLY XR CHEST 1V History: Shortness of air. Comparison: 09/25/2020, 07/26/2020 Technique: Portable AP radiograph of the chest. Findings: The lungs are hyperinflated. No airspace consolidation, pleural effusion or pneumothorax. Cardiac mediastinal silhouette and pulmonary vasculature are within normal limits. Calcification of the aortic arch. Senescent changes of the spine and shoulders. Soft tissues are unremarkable. Impression: 1. Hyperinflation without acute cardiopulmonary findings. Electronically signed by: Medhat Encinas MD (06/20/2021 10:49 AM) [id number] DICTATED AND SIGNED BY: MEDHAT ENCINAS MD DATE: 06/20/21 1048 CC: AVA ESCALANTE DO; YANIRA GUTIERREZ MD; FATIMAH VENEGAS APRN ~MTH0 0 [] (FATIMAH VENEGAS APRN) Heart Score: C/O Chest Pain: No Risk Factors: Risk Factors: DM, Current or recent (<one month) smoker, HTN, HLP, family history of CAD, obesity. Risk Scores: Score 0 - 3: 2.5% MACE over next 6 weeks - Discharge Home Score 4 - 6: 20.3% MACE over next 6 weeks - Admit for Clinical Observation Score 7 - 10: 72.7% MACE over next 6 weeks - Early Invasive Strategies (FATIMAH VENEGAS APRN) Course & Med Decision Making: Course & Med Decision Making Pertinent Labs and Imaging studies reviewed. (See chart for details) Patient is a 75-year-old female with a history of COPD who presents with shortness of breath and increased cough. She is requiring oxygen in the ER. She states that her primary care provider is attempting to set her up with home oxygen but they have not yet. CBC unremarkable. Patient is noted to have hypokalemia and this was replaced in the ER. Chest x-ray shows hyperinflation consistent with COPD. Patient treated with DuoNeb due to wheezing and Solu- Medrol. Due to patient requiring oxygen in the ER, I discussed with her possible admission into the hospital she is agreeable after discussing with her . I discussed patient's case with Dr. Galicia and he agreed to admit the patient under his services. He also recommended obtaining a D-dimer to rule out a pulmonary embolism. Care transferred at this time 1220. (FATIMAH VENEGAS APRN) Course & Med Decision Making I was the Attending physician on the above date of service of this patient. This patient was evaluated, examined, treated, and dispositioned from the emergency department by the mid-level practitioner. I saw the patient and repeated certain aspects of history and physical exam and agreed need for hospitalization Electronically signed, Ava Escalante DO (VAA ESCALANTE DO) Dragon Disclaimer: Dragon Disclaimer: This electronic medical record was generated, in whole or in part, using a voice recognition dictation system. (FATIMAH VENEGAS APRN) Departure Departure: Impression: Primary Impression: Hypoxia Additional Impression: COPD exacerbation Disposition: ADMITTED INPATIENT Admitting Physician: Adis Knutson (FATIMAH VENEGAS APRN) Admitting Physician: Adis Knutson (AVA ESCALANTE DO) Condition: STABLE Referrals: YANIRA GUTIERREZ MD (PCP) FATIMAH VENEGAS APRN Jun 20, 2021 10:20 AVA ESCALANTE DO Jun 21, 2021 06:26
[2021-06-20] MEDS ORDERED: IPRATRPIUM/ALBUTEROL 0.5/2.5MG 3 ML NEBU. NEB ONE (10:30)
[2021-06-20] MEDS ORDERED: methylPREDNISolone SOD SUCC PF 125 MG/2 ML VIAL. IV ONE (10:30)
--- NOTE | 2021-06-20 10:45 | EKG ---
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
[2021-06-20 10:48] LABS: BASO % 0 % (0-3); EOS % 0 % (0-3); HEMATOCRIT 49.9 % (36.0-47.0); HEMOGLOBIN 16.6 g/dL (12.0-15.5); LYMPH # 0.8 x10^3/uL (1.0-4.8); LYMPH % 8 % (24-48); MEAN CORPUSCULAR HEMOGLOBIN 31 pg (25-35); MEAN CORPUSCULAR HGB CONC 33 g/dL (31-37); MEAN CORPUSCULAR VOLUME 92 fL (79-100); MONO # 0.6 x10^3/uL (0.0-1.1); MONO % 6 % (0-9); NEUT # 8.5 x10^3uL (1.8-7.7); NEUT % 85 % (31-73); PLATELET COUNT 288 x10^3/uL (140-400); RED BLOOD COUNT 5.41 x10^6/uL (3.50-5.40); RED CELL DISTRIBUTION WIDTH 16.8 % (11.5-14.5)
--- NOTE | 2021-06-20 10:52 | RAD ---
XR CHEST 1V History: Shortness of air. Comparison: 09/25/2020, 07/26/2020 Technique: Portable AP radiograph of the chest. Findings: The lungs are hyperinflated. No airspace consolidation, pleural effusion or pneumothorax. Cardiac med iastinal silhouette and pulmonary vasculature are within normal limits. Calcification of the aortic a rch. Senescent changes of the spine and shoulders. Soft tissues are unremarkable. Impression: 1. Hyperinflation without acute cardiopulmonary findings. Electronically signed by: Medhat Bello MD (06/20/2021 10:49 AM) [id number]
[2021-06-20 12:01] LABS: CALCIUM 9.4 mg/dL (8.5-10.1); CREATININE 0.6 mg/dL (0.6-1.0); POTASSIUM 3.2 mmol/L (3.5-5.1)
[2021-06-20 12:06] LABS: ALBUMIN 3.4 g/dL (3.4-5.0); TOTAL BILIRUBIN 0.7 mg/dL (0.2-1.0); TOTAL PROTEIN 6.9 g/dL (6.4-8.2)
[2021-06-20] MEDS ORDERED: POTASSIUM CHLORIDE 20 MEQ TABLET.ER. PO ONE (12:15)
--- NOTE | 2021-06-20 14:25 | NUR ---
pt left AMA upon arrival to unit. Pt upset about no visitor policy. Pt stated she will contact CM on Tuesday for home oxygen setup. Security notified of AMA.
== END 2021-06-20 14:25 | disposition left against medical advice (07) ==
LOC: ER 10:00 → 1 SOUTH 12:15
PROVIDERS: ADMIT Internal Medicine; ATTEND Internal Medicine
DX: J44.1 Chronic obstructive pulmonary disease with (acute) exacerbation (principal); R09.02 Hypoxemia; I11.0 Hypertensive heart disease with heart failure; I50.9 Heart failure, unspecified; M79.7 Fibromyalgia; E78.00 Pure hypercholesterolemia, unspecified; E78.5 Hyperlipidemia, unspecified; K21.9 Gastro-esophageal reflux disease without esophagitis; F17.200 Nicotine dependence, unspecified, uncomplicated; Z86.73 Personal history of transient ischemic attack (TIA), and cerebral infarction without residual deficits; Z90.49 Acquired absence of other specified parts of digestive tract; Z90.710 Acquired absence of both cervix and uterus; Z79.899 Other long term (current) drug therapy
CPT/HCPCS: 36415; 71045; 80053; 84484; 85025; 85379; 93005; 94640; 96374; 99285; G0378; J2930; G0379

== ENCOUNTER 2021-06-22 11:33 | Emergency (ER) | payer MEDICARE ==
[~2021-06-22] VITALS: Ht 157.5 cm; Wt 54.5 kg
[2021-06-22 11:45] VITALS: BP 168/75
[2021-06-22] MEDS ORDERED: IOHEXOL 350 MG/ML 100 ML VIAL. IV ONE (12:00)
--- NOTE | 2021-06-22 12:09 | PHYS DOC ---
Past History Past Medical History: Arthritis, CHF, COPD, Fibromyalgia, GERD, High Cholesterol, Hypertension, TIA (FATIMAH VENEGAS APRN) Past Surgical History: No Surgical History (FATIMAH VENEGAS APRN) Smoking: Cigarettes Alcohol Use: None Drug Use: None (FATIMAH VENEGAS APRN) General Adult EDM: Chief Complaint: SHORTNESS OF BREATH HPI: HPI: Patient is a 75-year-old female being seen in the ER for shortness of breath. Patient has a history of COPD. She states that she came into the ER today to get set up for home oxygen. She does not have oxygen at home. She denies any increased cough, fever, chest pain, sick exposures. Patient was seen in this ER 2 days prior for similar symptoms and got admitted for hypoxia. Patient's D- dimer was noted to be elevated in the hospital. Patient left AGAINST MEDICAL ADVICE when she got admitted to the hospital. Patient's O2 saturation is 86% on room air. The hospital case supervisor is currently working to set up patient with outpatient oxygen therapy. (FATIMAH VENEGAS APRN) Review of Systems: Review of Systems: 14 body systems of the review of systems have been reviewed. See HPI for pertinent positive and negative responses, otherwise all other systems are negative, nonpertinent or noncontributory (FATIMAH VENEGAS APRN) Current Medications: Current Meds: Current Medications Medications (Trade) Dose Ordered Sig/Sue Start Time Stop Time Status Last Admin Dose Admin Iohexol (Omnipaque 350 Mg/ml) 100 ml 1X ONCE 06/22/21 12:00 06/22/21 12:01 DC 06/22/21 12:04 100 ML (FATIMAH VENEGAS APRN) Allergies: Allergies: Allergies Coded Allergies Type Severity Reaction Last Updated Verified paroxetine HCl Allergy Mild Diarrhea 12/16/18 Yes (FATIMAH VENEGAS APRN) Physical Exam: PE: Constitutional: Well developed, well nourished, no acute distress, non-toxic appearance. [] HENT: Normocephalic, atraumatic, bilateral external ears normal, oropharynx moist, no oral exudates, nose normal. [] Eyes: PERRL, EOMI, conjunctiva normal, no discharge. [] Neck: Normal range of motion, no tenderness, supple, no stridor. [] Cardiovascular:Heart rate regular rhythm, no murmur [] Lungs & Thorax: Bilateral breath sounds clear to auscultation [] Abdomen: Bowel sounds normal, soft, no tenderness, no masses, no pulsatile masses. [] Skin: Warm, dry, no erythema, no rash. [] Back: Normal range of motion Extremities: No tenderness, no cyanosis, no clubbing, ROM intact, no edema. [] Neurologic: Alert and oriented X 3, normal motor function, normal sensory function, no focal deficits noted. [] Psychologic: Affect normal, judgement normal, mood normal. [] (FATIMAH VENEGAS APRN) Current Patient Data: Labs: Laboratory Tests Test 06/22/21 11:15 White Blood Count 9.1 x10^3/uL Red Blood Count 4.75 x10^6/uL Hemoglobin 14.4 g/dL Hematocrit 44.6 % Mean Corpuscular Volume 94 fL Mean Corpuscular Hemoglobin 30 pg Mean Corpuscular Hemoglobin Concent 32 g/dL Red Cell Distribution Width 17.1 % Platelet Count 238 x10^3/uL Neutrophils (%) (Auto) 69 % Lymphocytes (%) (Auto) 24 % Monocytes (%) (Auto) 6 % Eosinophils (%) (Auto) 1 % Basophils (%) (Auto) 1 % Neutrophils # (Auto) 6.3 x10^3uL Lymphocytes # (Auto) 2.2 x10^3/uL Monocytes # (Auto) 0.5 x10^3/uL Eosinophils # (Auto) 0.1 x10^3/uL Basophils # (Auto) 0.0 x10^3/uL Sodium Level 143 mmol/L Potassium Level 3.7 mmol/L Chloride Level 105 mmol/L Carbon Dioxide Level 31 mmol/L Anion Gap 7 Blood Urea Nitrogen 8 mg/dL Creatinine 0.6 mg/dL Estimated GFR (Cockcroft-Gault) 98.0 BUN/Creatinine Ratio 13 Glucose Level 113 mg/dL Calcium Level 9.0 mg/dL Total Bilirubin 0.4 mg/dL Aspartate Amino Transf (AST/SGOT) 21 U/L Alanine Aminotransferase (ALT/SGPT) 18 U/L Alkaline Phosphatase 75 U/L Troponin I Quantitative < 0.017 ng/mL Total Protein 6.1 g/dL Albumin 3.2 g/dL Albumin/Globulin Ratio 1.1 Current Medications Medications (Trade) Dose Ordered Sig/Sue Route PRN Reason Start Time Stop Time Status Last Admin Dose Admin Iohexol (Omnipaque 350 Mg/ml) 100 ml 1X ONCE IV 06/22/21 12:00 06/22/21 12:01 DC 06/22/21 12:04 Vital Signs: Vital Signs Date Time Temp Pulse Resp B/P (MAP) Pulse Ox O2 Delivery O2 Flow Rate FiO2 06/22/21 11:45 97.5 92 30 168/75 (106) 85 Room Air (FATIMAH VENEGAS HYDRO ELECTRIC STATION OPERATOR) EKG: EKG: EKG performed by ER staff at 1207 shows sinus rhythm, no STEMI read by Dr. Escalante 1214 [] (FATIMAH VENEGAS HYDRO ELECTRIC STATION OPERATOR) Radiology/Procedures: Radiology/Procedures: []PROCEDURE: CT ANGIOGRAPHY CHEST EXAM: CT chest with contrast - pulmonary embolus protocol CLINICAL HISTORY: Reason: elevated d dimer 2 days ago, r/o pe / Spl. Instructions: / History: . COMPARISON: None. TECHNIQUE: CT of the chest following the administration of intravenous contrast during the pulmonary arterial phase. Axial, coronal and sagittal reformatted images were generated including MIP images. ---PQRS compliance statement - One or more of the following individualized dose reduction techniques were utilized for this study: 1. Automated exposure control 2. Adjustment of the mA and/or kV according to patient size 3. Use of iterative reconstruction technique--- FINDINGS: CHEST: Diagnostic quality: Adequate. Pulmonary emboli: None seen Right heart strain: None Pulmonary arteries: Normal in caliber. Heart is not enlarged. No pericardial effusion. No pleural effusion or pneumothorax. No axillary lymphadenopathy. No mediastinal or hilar lymphadenopathy. No pleural effusion. No pneumothorax. Aortic calcifications are seen. Coronary calcifications are noted. Tree-in-bud and nodular opacities are seen in the left upper lobe (series 5 image 34) large solid component measures about 6 mm. Linear and bandlike opacities lower lobes and middle lobe and lingula likely scarring/atelectasis. Interstitial prominence. Vague groundglass opacities particularly in the lower lungs. 7 mm medial right lower lobe lung nodule is seen. Visualized Upper abdomen: Cholecystectomy clips are seen. Atherosclerotic disease of the abdominal aorta with atheromatous plaquing in calcifications. Calcified granuloma are seen. Bones: Degenerative changes of the spine are seen. Trace height loss of the L1 vertebral body, age-indeterminate compression fracture. IMPRESSION: No evidence for acute pulmonary embolus. Likely on of emphysematous change. Patchy and nodular tree-in-bud opacities bilaterally, with scattered groundglass opacities, possibly atypical infectious or inflammatory process. Follow-up CT in 3 months is recommended. Atherosclerotic disease of the aorta, particularly prominent in the abdominal aorta. Electronically signed by: Manuel Cordon MD (06/22/2021 12:37 PM) [facility] DICTATED AND SIGNED BY: MANUEL CORDON MD DATE: 06/22/21 1223 CC: YANIRA GUTIERREZ MD; FATIMAH VENEGAS APRN ~MTH0 0 (FATIMAH VENEGAS APRN) Heart Score: C/O Chest Pain: No Risk Factors: Risk Factors: DM, Current or recent (<one month) smoker, HTN, HLP, family history of CAD, obesity. Risk Scores: Score 0 - 3: 2.5% MACE over next 6 weeks - Discharge Home Score 4 - 6: 20.3% MACE over next 6 weeks - Admit for Clinical Observation Score 7 - 10: 72.7% MACE over next 6 weeks - Early Invasive Strategies (FATIMAH VENEGAS APRN) Course & Med Decision Making: Course & Med Decision Making Pertinent Labs and Imaging studies reviewed. (See chart for details) [] Patient is a 75-year-old female being seen in the ER for increased shortness of breath. Patient has a history of COPD and is requiring home oxygen. Patient returned to the ER after leaving AGAINST MEDICAL ADVICE 2 days prior for home oxygen therapy. Work-up in the ER consisted of blood work, CTA because patient had elevated D-dimer 2 days ago prior to leaving AGAINST MEDICAL ADVICE. Patient currently on oxygen. CBC, CMP, troponin negative. Patient CTA shows no pulmonary embolism, emphysematous changes, pneumonia versus inflammatory process. Patient will be treated with an antibiotic. Patient required oxygen when she was seen in the ER 2 days prior, when no pneumonia was seen on her est x-ray. I believe that patient's hypoxia is due to her COPD. Patient states that she has been trying to get on oxygen by her primary care provider for a while. I discussed with patient all findings and diagnostic testing as well as the need to follow-up with PCP for further evaluation and treatment or return to the ER if any new or worsening symptoms. Strict return precautions were also discussed at length. Patient voiced understanding and agreement with the plan. Patient is hemodynamically stable at the time of disposition. (FATIMAH VENEGAS HYDRO ELECTRIC STATION OPERATOR) Course & Med Decision Making I was the Attending physician on the above date of service of this patient. This patient was evaluated, examined, treated, and dispositioned from the emergency department by the mid-level practitioner. Although I was working at the time , no assistance was requested. Electronically signed, Ava Escalante DO (AVA ESCALANTE DO) Willi Disclaimer: Willi Disclaimer: This electronic medical record was generated, in whole or in part, using a voice recognition dictation system. (FATIMAH VENEGAS HYDRO ELECTRIC STATION OPERATOR) Departure Departure: Impression: Primary Impression: COPD exacerbation Additional Impression: Hypoxia Disposition: HOME / SELF CARE / HOMELESS Condition: GOOD Referrals: YANIRA GUTIERREZ MD (PCP) Patient Instructions: Chronic Obstructive Pulmonary Disease Exacerbation, Pneumonia, Adult, Smoking Cessation Additional Instructions: You were seen in the ER today for shortness of breath. We are able to set you up with home oxygen, please use this as directed. Do not smoke with your oxygen. I would recommend you quitting smoking immediately. You were noted to have possible pneumonia on your chest scan. This will be treated with antibiotic. Please start and finish these both completely. You need to follow- up with your primary care provider tomorrow regarding your ER visit. You can take Tylenol/ibuprofen for any pain at home. If you develop high fevers refractory to treatment, chest pain, worsening of your shortness of breath or cough, lightheadedness, weakness or any new complaints please return to the ER. EMERGENCY DEPARTMENT GENERAL DISCHARGE INSTRUCTIONS Thank you for coming to [facility] (ED) today and trusting us with you care. We trust that you had a positivie experience in our Emergency Department. If you wish to speak to the department management, you may call the director at [phone]. YOUR FOLLOW UP INSTRUCTIONS ARE FOLLOWS: 1. Do you have a private Doctor? If you do not have a private doctor, please ask for a resource list of physicians or clinics that may be able to assist you with follow up care. 2. The Emergency Physician has interpreted your x-rays. The X-Ray specialist will also review them. If there is a change in the findings, you will be notified in 48 hours when at all possible. 3. A lab test or culture has been done, your results will be reviewed and you will be notified if you need a change in treatment. ADDITIONAL INSTRUCTIONS AND INFORMATION: 1. Your care today has been supervised by a physician who is specially trained in emergency care. Many problems require more than one evaluation for a complete diagnosis and treatment. We recommend that you schedule your follow up appointment as recommended to ensure complete treatment of you illness or injury. If you are unable to obtain follow up care and continue to have a problem, or if your condition worsens, we recommend that you return to the ED. 2. We are not able to safely determine your condition over the phone nor are we able to give sound medical advice over the phone. For these safety reasons, if you call for medical advice we will ask you to come to the ED for further evaluation. 3. If you have any questions regarding these discharge instructions please call the ED at [phone]. SAFETY INFORMATION: In the interest of safety, wellness, and injury prevention; we encourage you to wear your sealbelt, if you smoke; quite smoking, and we encourage family to use a protective helmet for bicycling and other sporting events that present an increased risk for head injury. IF YOUR SYMPTOMS WORSEN OR NEW SYMPTOMS DEVELOP, OR YOU HAVE CONCERNS ABOUT YOUR CONDITION; OR IF YOUR CONDITION WORSENS WHILE YOU ARE WAITING FOR YOUR FOLLOW UP APPOINTMENT; EITHER CONTACT YOUR PRIMARY CARE DOCTOR, THE PHYSICIAN WHOSE NAME AND NUMBER YOU WERE GIVEN, OR RETURN TO THE ED IMMEDIATELY. Scripts Azithromycin (AZITHROMYCIN TABLET) 250 Mg Tablet 1 PKG PO UD for pneumonia for 5 Days, #6 TAB 0 Refills 2 the first day followed by 1 for days 2-5 Prov: FATIMAH VENEGAS APRN 06/22/21 Amoxicillin/Potassium Clav (AUGMENTIN 875-125 TABLET) 1 Each Tablet 1 TAB PO BID for pneumonia for 7 Days, #14 TAB 0 Refills Prov: FATIMAH VENEGAS APRN 06/22/21 FATIMAH VENEGAS APRN Jun 22, 2021 12:08 AVA ESCALANTE DO Jun 27, 2021 17:50
[2021-06-22 12:13] LABS: BASO % 1 % (0-3); EOS # 0.1 x10^3/uL (0.0-0.7); EOS % 1 % (0-3); HEMATOCRIT 44.6 % (36.0-47.0); HEMOGLOBIN 14.4 g/dL (12.0-15.5); LYMPH # 2.2 x10^3/uL (1.0-4.8); LYMPH % 24 % (24-48); MEAN CORPUSCULAR HEMOGLOBIN 30 pg (25-35); MEAN CORPUSCULAR HGB CONC 32 g/dL (31-37); MEAN CORPUSCULAR VOLUME 94 fL (79-100); MONO # 0.5 x10^3/uL (0.0-1.1); MONO % 6 % (0-9); NEUT # 6.3 x10^3uL (1.8-7.7); NEUT % 69 % (31-73); PLATELET COUNT 238 x10^3/uL (140-400); RED BLOOD COUNT 4.75 x10^6/uL (3.50-5.40); RED CELL DISTRIBUTION WIDTH 17.1 % (11.5-14.5); WHITE BLOOD COUNT 9.1 x10^3/uL (4.0-11.0)
[2021-06-22 12:19] LABS: CREATININE 0.6 mg/dL (0.6-1.0); POTASSIUM 3.7 mmol/L (3.5-5.1)
--- NOTE | 2021-06-22 12:19 | EKG ---
[address] [address] Test Date: 2021-06-22 Test Time: 12:07:36 Pat Name: JESSE YOUNG Department: Room: Gender: F Vacuum System Tester: AGATA : 1945 Requested By: FATIMAH VENEGAS Order Number: [id number] Reading MD: Measurements Intervals R[place] Rate: 71 P: 73 IL: 146 QRS: 66 QRSD: 76 T: 74 QT: 374 QTc: 411 Interpretive Statements SINUS RHYTHM LEFT ATRIAL ABNORMALITY QRS(T) CONTOUR ABNORMALITY CONSISTENT WITH ANTEROSEPTAL INFARCT AGE UNDETERMINED ABNORMAL ECG RI6.02 No previous ECG available for comparison
[2021-06-22 12:25] LABS: ALBUMIN 3.2 g/dL (3.4-5.0); ALBUMIN/GLOBULIN RATIO 1.1 (1.0-1.7); TOTAL BILIRUBIN 0.4 mg/dL (0.2-1.0); TOTAL PROTEIN 6.1 g/dL (6.4-8.2)
--- NOTE | 2021-06-22 12:40 | RAD ---
EXAM: CT chest with contrast - pulmonary embolus protocol CLINICAL HISTORY: Reason: elevated d dimer 2 days ago, r/o pe / Spl. Instructions: / History: . COMPARISON: None. TECHNIQUE: CT of the chest following the administration of intravenous contrast during the pulmonary arterial phase. Axial, coronal and sagittal reformatted images were generated including MIP images. ---PQRS compliance statement - One or more of the following individualized dose reduction techniques were utilized for this study: 1. Automated exposure control 2. Adjustment of the mA and/or kV according to patient size 3. Use of iterative reconstruction technique--- FINDINGS: CHEST: Diagnostic quality: Adequate. Pulmonary emboli: None seen Right heart strain: None Pulmonary arteries: Normal in caliber. Heart is not enlarged. No pericardial effusion. No pleural effusion or pneumothorax. No axillary lymp hadenopathy. No mediastinal or hilar lymphadenopathy. No pleural effusion. No pneumothorax. Aortic calcifications are seen. Coronary calcifications are not ed. Tree-in-bud and nodular opacities are seen in the left upper lobe (series 5 image 34) large solid com ponent measures about 6 mm. Linear and bandlike opacities lower lobes and middle lobe and lingula lik jeri scarring/atelectasis. Interstitial prominence. Vague groundglass opacities particularly in the lo wer lungs. 7 mm medial right lower lobe lung nodule is seen. Visualized Upper abdomen: Cholecystectomy clips are seen. Atherosclerotic disease of the abdominal a nandini with atheromatous plaquing in calcifications. Calcified granuloma are seen. Bones: Degenerative changes of the spine are seen. Trace height loss of the L1 vertebral body, age-in determinate compression fracture. IMPRESSION: No evidence for acute pulmonary embolus. Likely on of emphysematous change. Patchy and nodular tree-in-bud opacities bilaterally, with scattered groundglass opacities, possibly atypical infectious or inflammatory process. Follow-up CT in 3 months is recommended. Atherosclerotic disease of the aorta, particularly prominent in the abdominal aorta. Electronically signed by: Manuel Rosenberg MD (06/22/2021 12:37 PM) [facility]
[2021-06-22] MEDS ORDERED: AZIT250T6 PO (12:49)
[2021-06-22] MEDS ORDERED: AMOX1TAB61 PO (12:49)
== END 2021-06-22 13:00 | disposition home or self-care (01) ==
LOC: ER 11:33
DX: J44.1 Chronic obstructive pulmonary disease with (acute) exacerbation (principal); R09.02 Hypoxemia; M19.90 Unspecified osteoarthritis, unspecified site; I11.0 Hypertensive heart disease with heart failure; I50.9 Heart failure, unspecified; J44.9 Chronic obstructive pulmonary disease, unspecified; M79.7 Fibromyalgia; E78.00 Pure hypercholesterolemia, unspecified; I10 Essential (primary) hypertension; F17.210 Nicotine dependence, cigarettes, uncomplicated; Z86.73 Personal history of transient ischemic attack (TIA), and cerebral infarction without residual deficits; Z88.8 Allergy status to other drugs, medicaments and biological substances
CPT/HCPCS: 36415; 71275; 80053; 84484; 85025; 93005; 99285; Q9967